=== PATIENT | female | born 1995 | race Caucasian/White ===

== ENCOUNTER 2019-07-05 10:04 | Emergency (ER) | payer OTHER ==
--- OUTSIDE RECORDS SUMMARY | 2019-07-05 10:06 | XMS REPORT | Summary of Care ---
:[address] [facility] - Health Address [address] [place] [address] Care Team Providers Name Role Phone Preston Matamoros Primary Care Provider Encounter Details Date Type Department Care Team Description 01/18/[address] [facility] Doctor Unassigned, No [address] [facility] [place] [address] [address] [place] [address] Allergies No Known Allergiesdocumented as of this encounter (statuses as of 01/18/2019) Medications Medication Sig Dispensed Refills Start Date End Date Status lurasidone (LATUDA) 40 Take 40 mg by 0 Active mg tablet mouth. traZODONE 50 mg tablet Take 50 mg by 0 Active mouth daily. lamoTRIgine (LAMICTAL) Take 150 mg by 0 Active 150 mg tablet mouth daily. esomeprazole (NEXIUM) 40 Take 40 mg by 0 Active mg capsule mouth daily with breakfast. norethindrone-ethinyl Take by mouth 0 Active estradiol 1-5 mg-mcg daily. tablet buPROPion XL 300 mg 24 Take 300 mg by 0 Active hr tablet mouth daily. dextroamphetamine-amphet Take 20 mg by 0 Active amine (ADDERALL) 20 mg mouth 2 (two) tablet times daily. DULoxetine 60 mg capsule Take 60 mg by 0 Active mouth 2 (two) times daily. documented as of this encounter (statuses as of 01/18/2019) Active Problems Not on filedocumented as of this encounter (statuses as of 01/18/2019) Social History Tobacco Use Types Packs/Day Years Used Date Never Smoker Smokeless Tobacco: Never Used Sex Assigned at Date Recorded Not on file Job Start Date Occupation Industry Not on file Not on file Not on file Travel History Travel Start Travel End No recent travel history available. documented as of this encounter Last Filed Vital Signs Not on filedocumented in this encounter Plan of Treatment Health Maintenance Due Date Last Done Comments MENINGOCOCCAL B VACCINES (1 of 2 - 2005 Risk Bexsero 2-dose series) VARICELLA VACCINES (1 of 2 - 13+ 2008 2-dose series) HPV VACCINES (1 - Female 3-dose 2010 series) CHLAMYDIA SCREENING 2011 DTaP,Tdap,and Td Vaccines (1 - 2014 Tdap) PAP SMEAR 2016 INFLUENZA VACCINE (Retired version) 02/04/2019 PNEUMOCOCCAL 0-64 YEARS COMBINED Aged Out No longer eligible based on SERIES patient's age to complete this topic documented as of this encounter Procedures Procedure Name Priority Date/Time Associated Diagnosis Comments ASSIGNMENT OF BENEFITS Routine 01/18/2019 2:40 PM CDT documented in this encounter Results Not on filedocumented in this encounter Insurance Payer Benefit Plan / Group Subscriber ID Effective Dates Phone Address Type [place] [id number] 2018-Present documented as of this encounter
--- OUTSIDE RECORDS SUMMARY | 2019-07-05 10:06 | XMS REPORT ---
:1995 Author Organization [facility] Address [address] [place] [address] Dr. Darby [address] [place] [id number] Care Team Providers Name Role Phone Unavailable Unavailable Unavailable Problems This patient has no known problems. Allergies, Adverse Reactions, Alerts This patient has no known allergies or adverse reactions. Medications This patient has no known medications.
--- OUTSIDE RECORDS SUMMARY | 2019-07-05 10:06 | XMS REPORT ---
:1995 Author Organization [employer] Care Team Providers Name Role Phone Judy Albert Provider Role Unavailable Allergies No Known Allergies Problems Problem Type Condition Code Onset Dates Condition Status Assessment Other specified bacterial agents as B96.89 Active the cause of diseases classified elsewhere Assessment Acute vaginitis N76.0 Active Problem History of abnormal cervical Pap Z87.898 Active smear Problem Seasonal allergic rhinitis due to J30.1 Active pollen Problem LGSIL on Pap smear of cervix R87.612 Active Problem Cervical dysplasia N87.9 Active Assessment LGSIL on Pap smear of cervix R87.612 Active Problem Asthma J45.909 Active Problem Bipolar disorder F31.9 Active Medications Medication Code Code Instructions Start End Status Dosage System Date Date Latuda [facility] 75421562753 40 MG Orally Active 1 tablet Once a day with food Xanax ND 56366250513 0.25 MG Orally Active 1 tablet Twice a day prn Cymbalta ND 93015041941 60 MG Orally Active 2 capsule Once a day Lamictal ND 81054361991 150 MG Orally Active 1 tablet once a day Trazodone HCl ND 04713153222 50 MG Orally Active 1 tablet Once a day at bedtime as needed Adderall ND 05105785694 20 MG Orally Active 1 tablet twice a day in the morning Wellbutrin XL ND 08497637534 300 MG Orally Active 1 tablet Once a day in the morning Flagyl ND 39058660621 500 MG Orally 15 November Active 1 tablet 2017 Nexium ND 70513251018 40 MG Orally Active 1 capsule Once a day Results No Known Results Summary Purpose eClinicalWorks Submission
--- OUTSIDE RECORDS SUMMARY | 2019-07-05 10:06 | XMS REPORT ---
:1995 Author Organization [employer] Care Team Providers Name Role Phone Judy Albert Provider Role Unavailable Allergies, Adverse Reactions, Alerts Substance Reaction Event Type N.K.D.A. Info Not Available Non Drug Allergy Problems Problem Type Condition Code Onset Dates Condition Status Problem Seasonal allergic rhinitis due to J30.1 Active pollen Problem Asthma J45.909 Active Problem History of abnormal cervical Pap Z87.898 Active smear Assessment History of abnormal cervical Pap Z87.898 Active smear Problem Bipolar disorder F31.9 Active Problem Cervical dysplasia N87.9 Active Medications Medication Code Code Instructions Start End Status Dosage System Date Date Trazodone HCl [facility] 46179548952 50 MG Orally Active 1 tablet Once a day at bedtime as needed Cymbalta [facility] 48728993061 60 MG Orally Active 2 capsule Once a day Latuda [facility] 97495896857 40 MG Orally Active 1 tablet Once a day with food Adderall ND 16094263509 20 MG Orally Active 1 tablet twice a day in the morning Nexium ND 74986181060 40 MG Orally Active 1 capsule Once a day Lamictal ND 45341790354 150 MG Orally Active 1 tablet once a day Wellbutrin XL ND 94760475352 300 MG Orally Active 1 tablet Once a day in the morning Xanax [facility] 13363753910 0.25 MG Orally Active 1 tablet Twice a day prn Results No Known Results Summary Purpose eClinicalWorks Submission
--- OUTSIDE RECORDS SUMMARY | 2019-07-05 10:07 | XMS REPORT | Summary of Care ---
:1995 Author Organization [facility] - Health Address [address] [place] [address] Care Team Providers Name Role Phone rPeston Matamoros Nathaniel Primary Care Provider Encounter Details Date Type Department Care Team Description 02/03/2019 Orders Only [facility] Doctor Unassigned, No 301 [facility] Name [place] [id number] [address] [place] [address] Allergies No Known Allergiesdocumented as of this encounter (statuses as of 02/03/2019) Medications Medication Sig Dispensed Refills Start Date End Date Status traZODONE 50 mg tablet Take 50 mg by 0 Active mouth daily. lamoTRIgine (LAMICTAL) Take 150 mg by 0 Active 150 mg tablet mouth daily. esomeprazole (NEXIUM) Take 40 mg by 0 Active 40 mg capsule mouth daily with breakfast. norethindrone-ethinyl Take by mouth 0 Active estradiol 1-5 mg-mcg daily. tablet dextroamphetamine-amph Take 20 mg by 0 Active etamine (ADDERALL) 20 mouth 2 (two) mg tablet times daily. metroNIDAZOLE (FLAGYL) Take 1 tablet by 14 tablet 3 01/18/2019 Active 500 mg mouth 2 (two) tabletIndications: BV times daily. (bacterial vaginosis) metroNIDAZOLE Insert 1 280 g 6 01/18/2019 Active (METROGEL VAGINAL) Applicator into 0.75 % vaginal vagina at bedtime. gelIndications: BV (bacterial vaginosis) documented as of this encounter (statuses as of 02/03/2019) Active Problems Problem Noted Date History of abnormal cervical Pap smear 01/18/2019 Overview: 02/08/2017 - LGSIL pap smear. 10/24/17 - LGSIL pap smear. Uses oral contraception 01/18/2019 BV (bacterial vaginosis) 01/18/2019 Overview: 01/18/19 - s/p Flagyl documented as of this encounter (statuses as of 02/03/2019) Social History Tobacco Use Types Packs/Day Years Used Date Never Smoker Smokeless Tobacco: Never Used Alcohol Use Drinks/Week oz/Week Comments Not Currently Sex Assigned at Date Recorded Not on file Job Start Date Occupation Industry Not on file Not on file Not on file Travel History Travel Start Travel End No recent travel history available. documented as of this encounter Last Filed Vital Signs Not on filedocumented in this encounter Plan of Treatment Date Type Specialty Care Team Description 01/21/2020 Office Visit Obstetrics & Gynecology Jenni Hope PA-C [address] [place] [phone] Health Maintenance Due Date Last Done Comments MENINGOCOCCAL B VACCINES (1 of 2 - 2005 Risk Bexsero 2-dose series) VARICELLA VACCINES (1 of 2 - 13+ 2008 2-dose series) HPV VACCINES (1 - Female 3-dose 2010 series) DTaP,Tdap,and Td Vaccines (1 - 2014 Tdap) INFLUENZA VACCINE (#1) 2019 CHLAMYDIA SCREENING 01/19/2020 01/18/2019 PAP SMEAR 01/18/2022 01/18/2019 PNEUMOCOCCAL 0-64 YEARS COMBINED Aged Out No longer eligible based on SERIES patient's age to complete this topic documented as of this encounter Procedures Procedure Name Priority Date/Time Associated Diagnosis Comments EXTERNAL PROVIDER Routine 02/03/2019 12:01 AM CDT RECORDS EXTERNAL PROVIDER Routine 02/03/2019 12:01 AM CDT RECORDS EXTERNAL PROVIDER Routine 02/03/2019 12:01 AM CDT RECORDS documented in this encounter Results Not on filedocumented in this encounter Insurance Payer Benefit Plan / Group Subscriber ID Effective Dates Phone Address Type [facility] [id number] 2018-Present documented as of this encounter
--- OUTSIDE RECORDS SUMMARY | 2019-07-05 10:07 | XMS REPORT | Summary of Care ---
:1995 Author Organization [facility] Address [address] [place] [address] Care Team Providers Name Role Phone Preston Matamoros Primary Care Provider Reason for Visit Reason Comments Well Woman Exam Other hx of abnormal paps Vaginal Discharge (Routine) Status Reason Specialty Diagnoses / Referred By Referred To Procedures Contact Contact Authorized Obstetrics & Diagnoses Encounter for gynecological examination (general) (routine) without abnormal findings Irregular menstruation, unspecified Preston Matamoros, Gynecology Procedures CONSULT PACKAGE CRIMPER Nathaniel Iqbal MD [address], Phone: [place] [phone] Phone: Encounter Details Date Type Department Care Team Description 01/18/2019 Office Visit [facility] Women[facility] Aurea, Pap smear for cervical cancer screening (Primary Dx); Healthcare- Radha Iqbal MD History of abnormal cervical Pap smear; [address] Screening examination for venereal disease; [address] [place], [place] Other specified conditions associated with female genital organs and menstrual cycle ; [place] [address] Uses oral contraception; [id number] Vaginal discharge; [phone] BV (bacterial vaginosis) (Fax) Allergies No Known Allergiesdocumented as of this encounter (statuses as of 01/18/2019) Medications Medication Sig Dispensed Refills Start Date End Date Status traZODONE 50 mg Take 50 mg by 0 Active tablet mouth daily. lamoTRIgine Take 150 mg by 0 Active (LAMICTAL) 150 mg mouth daily. tablet esomeprazole Take 40 mg by 0 Active (NEXIUM) 40 mg mouth daily with capsule breakfast. norethindrone-ethin Take by mouth 0 Active yl estradiol 1-5 daily. mg-mcg tablet dextroamphetamine-a Take 20 mg by 0 Active mphetamine mouth 2 (two) (ADDERALL) 20 mg times daily. tablet metroNIDAZOLE Take 1 tablet by 14 tablet 3 01/18/2019 Active (FLAGYL) 500 mg mouth 2 (two) tabletIndications: times daily. BV (bacterial vaginosis) metroNIDAZOLE Insert 1 280 g 6 01/18/2019 Active (METROGEL VAGINAL) Applicator into 0.75 % vaginal vagina at gelIndications: BV bedtime. (bacterial vaginosis) lurasidone (LATUDA) Take 40 mg by 0 Discontinued 40 mg tablet mouth. 9 buPROPion XL 300 mg Take 300 mg by 0 Discontinued 24 hr tablet mouth daily. 9 DULoxetine 60 mg Take 60 mg by 0 Discontinued capsule mouth 2 (two) 9 times daily. documented as of this encounter (statuses as of 01/18/2019) Active Problems Problem Noted Date History of abnormal cervical Pap smear 01/18/2019 Uses oral contraception 01/18/2019 BV (bacterial vaginosis) 01/18/2019 documented as of this encounter (statuses as [...] of this encounter Last Filed Vital Signs Vital Sign Reading Time Taken Comments Blood Pressure 145/105 01/18/2019 3:58 PM CDT Pulse 89 01/18/2019 3:58 PM CDT Temperature - - Respiratory Rate 18 01/18/2019 3:58 PM CDT Oxygen Saturation - - Inhaled Oxygen Concentration - - Weight 67.3 kg (148 lb 6.4 oz) 01/18/2019 3:58 PM CDT Height 149.9 cm (4' 11") 01/18/2019 3:58 PM CDT Body Mass Index 29.97 01/18/2019 3:58 PM CDT documented in this encounter Progress Notes Rasheed Villar MD - 01/18/2019 2:30 PM CDT Chief complaint: Chief Complaint Patient presents with Well Woman Exam Other hx of abnormal paps Vaginal Discharge HPI: The patient is a 23 year-old WF G0 LMP 12/11/18 who comes in for her annual well woman and pap smear. She reports having an abnormal pap smear in 2017 and another one in 2018. She was simply told [facility] in 1 year for a repeat pap smear. Those prior pap smear records are not available for review. She takes OCP for contraception, missed a week or so while waiting for a new prescription and is a little late for her menses. Urine HCG today is negative. She uses personal lubricants, typically oil based and has noticed that she has recurrent vaginal discharge with an odor. She has recently switched towater based lubricants but still has discharge. She denies any prior STDs. Histories OB History Para Term AB Living 0 0 0 0 0 0 SAB TAB Ectopic Multiple Live Births 0 0 0 0 0 Past Medical History: Diagnosis Date Asthma BV (bacterial vaginosis) 01/18/2019 Mental disorder Pap smear abnormality of cervix history of abnormal pap smear 2018 Family History Problem Relation Age of Onset High cholesterol Mother Depression Mother Hypertension Father Diabetes Maternal Grandfather Family Status Relation Name Status Mo Alive Fa Alive MGFa (Not Specified) History reviewed. No pertinent surgical history. Social History Socioeconomic History Marital status: Single Spouse name: Not on file Number of children: Not on file Years of education: Not on file Highest education level: Not on file Occupational History Not on file Social Needs Financial resource strain: Not on file Food insecurity: Worry: Not on file Inability: Not on file Transportation needs: Medical: Not on file Non-medical: Not on file Tobacco Use Smoking status: Never Smoker Smokeless tobacco: Never Used Substance and Sexual Activity Alcohol use: Not Currently Drug use: Never Sexual activity: Yes Partners: Male control/protection: Pill Lifestyle Physical activity: Days per week: Not on file Minutes per session: Not on file Stress: Not on file Relationships Social connections: Talks on phone: Not on file Gets together: Not on file Attends confucianism service: Not on file Active member of club or organization: Not on file Attends meetings of clubs or organizations: Not on file Relationship status: Not on file Intimate partner violence: Fear of current or ex partner: Not on file Emotionally abused: Not on file Physically abused: Not on file Forced sexual activity: Not on file Other Topics Concern Not on file Social History Narrative Not on file Social History Substance and Sexual Activity Sexual Activity Yes Partners: Male control/protection: Pill Labs No new labs Radiology No new radiology. Allergies Mikaela has No Known Allergies. Medications Mikaela has a current medication list which includes the following prescription( s): metronidazole, metronidazole, dextroamphetamine-amphetamine, esomeprazole, lamotrigine, norethindrone-ethinyl estradiol, and trazodone. Review of Systems Constitutional: Negative. Eyes: Negative. Respiratory: Negative. Breasts: Negative. Cardiovascular: Negative. Gastrointestinal: Negative. Genitourinary: Positive for vaginal discharge. Negative for genital sores. Musculoskeletal: Negative. Neurological: Negative. Psychiatric/Behavioral: Negative. Endocrine: Endocrine negative BP (!) 145/105 (BP Location: Right arm, Patient Position: Sitting, BP CUFF SIZE : Adult Medium) | Pulse 89 | Resp 18 | Ht 4' 11" (1.499 m) | Wt 148 lb 6.4 oz (67.3 kg) | LMP 12/08/2018 | BMI 29.97kg/m Pregravid BMI: Could not be calculated Physical Exam Vitals reviewed. Constitutional: She is oriented to person, place, and time. She appears well- developed and well-nourished. Cardiovascular: Regular rate and rhythm. Pulmonary/Chest: Normal inspiratory effort. Abdominal: Abdomen is soft. Neuro/Psychiatric: She has a normal mood and affect. She is oriented to person, place, and time. Breast: Normal left breast and normal right breast External genitalia: Normal external genitalia appropriate for age. Bladder: Normal bladder Vagina:Vaginal discharge (malodorous discharge) found. Cervix: Normal cervix. Uterus: Normal uterus Adnexa: Normal left adnexa and normal right adnexa Assessment/Plan Pap smear for cervical cancer screening (primary encounter diagnosis) History of abnormal cervical Pap smear Screening examination for venereal disease Other specified conditions associated with female genital organs and menstrual cycle Uses oral contraception Vaginal discharge BV (bacterial vaginosis) Comment: The patient's exam was notable for malodorous vaginal discharge clinically c/w BV. A pap smear and a vaginal swab were obtained. I sent a prescription for Flagyl pending the results as well asrefills for Metrogel that she can use twice weekly PRN. Plan: PAP Smear-Liquid Based; GC & CHLAMYDIA AMPLIFIED ASSAY; POCT TEST; GALV ONLY - VAGINAL PATHOGENS BY DNA PROBE metroNIDAZOLE (FLAGYL) 500 mg tablet, metroNIDAZOLE (METROGEL VAGINAL) 0.75 % vaginal gel Rasheed Villar MD 01/18/2019 4:41 PM documented in this encounter Plan of Treatment Date Type Specialty Care Team Description 01/21/2020 Office Visit Obstetrics & Gynecology Jenni Hope PA-C [address] [place] [phone] Name Type Priority Associated Diagnoses Order Schedule PAP Smear-Liquid Based LAB Routine Pap smear for cervical Ordered: 2018 cancer screening History of abnormal cervical Pap smear GC & CHLAMYDIA AMPLIFIED LAB Routine Other specified conditions Ordered: ASSAY associated with female genital organs and menstrual cycle Screening examination for venereal disease GALV ONLY - VAGINAL LAB Routine Vaginal discharge Ordered: 01/18/2019 PATHOGENS BY DNA PROBE Health Maintenance Due Date Last Done Comments MENINGOCOCCAL B VACCINES (1 of 2 - 2005 Risk Bexsero 2-dose series) VARICELLA VACCINES (1 of 2 - 13+ 2008 2-dose series) HPV VACCINES (1 - Female 3-dose 2010 series) CHLAMYDIA SCREENING 2011 DTaP,Tdap,and Td Vaccines (1 - 2014 Tdap) PAP SMEAR 2016 INFLUENZA VACCINE (#1) 2019 PNEUMOCOCCAL 0-64 YEARS COMBINED Aged Out No longer eligible based on SERIES patient's age to complete this topic documented as of this encounter Procedures Procedure Name Priority Date/Time Associated Diagnosis Comments POCT Routine 01/18/2019 4:12 Uses oral Results for this TEST PM CDT contraception procedure are in the results section. documented in this encounter Results POCT TEST (01/18/2019 4:12 PM CDT) POCT PREG Negative On board controls acceptable Yes with C Line POCT PREG LOT # POCT PREG TEST DATE Specimen Urine - URINE, CLEAN CATCH documented in this encounter Visit Diagnoses Diagnosis Pap smear for cervical cancer screening - Primary Screening for malignant neoplasm of the cervix History of abnormal cervical Pap smear Personal history of other genital system and obstetric disorders Screening examination for venereal disease Other specified conditions associated with female genital organs and menstrual cycle Uses oral contraception Vaginal discharge Leukorrhea, not specified as infective BV (bacterial vaginosis) Vaginitis and vulvovaginitis, unspecified documented in this encounter documented as of this encounter
--- OUTSIDE RECORDS SUMMARY | 2019-07-05 10:07 | XMS REPORT | Summary of Care ---
:1995 Author Organization [facility] [employer] [facility] Address [address] [place] [address] Care Team Providers Name Role Phone Preston Matamoros Primary Care Provider Reason for Visit Reason Comments Well Woman Exam Other hx of abnormal paps Vaginal Discharge (Routine) Status Reason Specialty Diagnoses / Referred By Referred To Procedures Contact Contact Authorized Obstetrics & Diagnoses Encounter for gynecological examination (general) (routine) without abnormal findings Irregular menstruation, unspecified Preston Matamoros, Gynecology Procedures CONSULT DIET CLERK Nathaniel Iqbal MD [address], Phone: [place] [phone] Phone: Encounter Details Date Type Department Care Team Description 01/18/2019 Office Visit [facility] Women's Aurea, Pap smear for cervical cancer screening (Primary Dx); Healthcare- Radha Iqbal MD History of abnormal cervical Pap smear; [address] Screening examination for venereal disease; [address] [place], [place] Other specified conditions associated with female genital organs and menstrual cycle ; [place] [address] Uses oral contraception; [id number] Vaginal discharge; [phone] BV (bacterial vaginosis) (Fax) Allergies No Known [...] one in 2018. She was simply told [facility] in 1 year for a repeat pap [...] file Gets together: Not on file Attends gnosticist service: Not on file Active member of [...] Visit Obstetrics & Gynecology Jenni Hope PA-C [address] [place] [phone] Name Type Priority Associated Diagnoses Order [...]
[2019-07-05 10:31] LABS: Arterial Blood Carboxyhemoglob 0.5 % (0-1.5); Blood Gas Oxyhemoglobin 98.5 % (94-97); Blood O2 Saturation 99.6 % (92-98.5)
[2019-07-05] MEDS ORDERED: NA CHLORIDE 0.9% 2,000 ML ONE (10:41)
[2019-07-05 10:43] LABS: Absolute Lymphocytes (CBC) 2.4 K/uL (0.7-4.9); Basophils % 0.5 % (0-1.3); Hematocrit 39.7 % (36.0-45.0); Lymphocytes % 22.2 % (15.3-44.8); MPV 9.2 fL (7.6-11.3); RBC Red Blood Cell Count 4.68 M/uL (3.86-4.86)
[2019-07-05 10:53] LABS: Protime INR 0.95
[2019-07-05 11:02] LABS: Barbiturates NEGATIVE (NEGATIVE); Benzodiazepines POSITIVE (NEGATIVE); Cocaine NEGATIVE (NEGATIVE); METHAMPHETAM NEGATIVE (NEGATIVE); Methadone NEGATIVE (NEGATIVE); Opiates NEGATIVE (NEGATIVE); Phencyclidine NEGATIVE (NEGATIVE); THC Cannibis POSITIVE (NEGATIVE)
[2019-07-05 11:06] LABS: Urine Blood TRACE (NEG); Urine Glucose NEGATIVE (NEG); Urine Protein NEGATIVE (NEG); Urine Specific Gravity 1.015 (1.005-1.030)
--- NOTE | 2019-07-05 11:07 | RAD REPORT ---
EXAM DESCRIPTION: CT - Head Brain Wo Cont - 07/05/2019 10:52 am CLINICAL HISTORY: Unresponsive COMPARISON: 2012 TECHNIQUE: Computed axial tomography of the head was obtained. IV contrast was not requested. All CT scans are performed using dose optimization technique as appropriate and may include automated exposure control or mA/KV adjustment according to patient size. FINDINGS: An intracranial bleed is not seen . The ventricles are normal in caliber. No extra-axial fluid collection is noted. The sulci, cisterns and ventricles appear smaller than on the prior exam. Fluid is present within the sinuses. IMPRESSION: The sulci, cisterns and ventricles appear smaller on the prior exam which may indicate d iffuse cerebral edema. Exam was discussed with Dr Camarillo in the Emergency Room 11 a.m. July 05, 2019
--- NOTE | 2019-07-05 11:16 | EKG ---
Test Date: 2019-07-05 Test Time: 10:14:46 Falsework Builder: NOELLE MEASUREMENT RESULTS: Intervals: Rate: 127 FL: 158 QRSD: 66 QT: 288 QTc: 418 [place]: P: 78 FL: 158 QRS: 82 T: 65 INTERPRETIVE STATEMENTS: Sinus tachycardia Otherwise normal ECG No previous ECG available for comparison Electronically Signed On 07-05-19 11:15:51 STAFF NURSE MIDWIFE by Darren Roman
--- NOTE | 2019-07-05 11:16 | RAD REPORT ---
EXAM DESCRIPTION: Aminata Single View07/05/2019 10:45 am CLINICAL HISTORY: Shortness of breath COMPARISON: none FINDINGS: Endotracheal tube has its tip 4.5 centimeters above the mami A nasogastric tube is present within the stomach The lungs appear clear of acute infiltrate The heart is normal size
[2019-07-05] MEDS ORDERED: D5 0.45 NS 1,000 ML IV ONE (11:19)
[2019-07-05 11:33] LABS: ALT/SGPT 23 U/L (12-78); AST/SGOT 18 U/L (15-37); Albumin 3.7 g/dL (3.4-5.0); Alkaline Phosphatase 115 U/L (45-117); BUN Blood Urea Nitrogen 9 mg/dL (7-18); Bicarbonate 29 mmol/L (21-32); Bilirubin Direct 0.1 mg/dL (0-0.2); Bilirubin Total 0.3 mg/dL (0.2-1.0); Glucose Level 103 mg/dL (74-106); Potassium 3.8 mmol/L (3.5-5.1); Protein, Total 7.9 g/dL (6.4-8.2); Sodium Level 141 mmol/L (136-145)
[2019-07-05] MEDS ORDERED: dexAMETHasone 10 MG/ML VIAL ONE (12:10)
[2019-07-05] MEDS ORDERED: MANNITOL 25% 50 ML IV ONE (12:11)
[2019-07-05] MEDS ORDERED: MANNITOL 25% IV ONE (12:30)
--- NOTE | 2019-07-05 12:39 | EDPHYS ---
Physician Documentation [facility] Name: Mikaela Vincent Age: 24 yrs Sex: Female : 1995 Arrival Date: 07/05/2019 Time: 10:05 Bed 4 Private MD: ED Physician Edgardo Camarillo HPI: 07/05 10:08 This 24 yrs old Female presents to ER via Unassigned with complaints of rn Possible Overdose. 10:08 The patient presents to the emergency department with a possible overdose. Context: rn Method: the patient has a confirmed or suspected ingestion, Time: the patient's OD/poisoning occurred at an unknown time, and was witnessed no one. Severity of symptoms: At their worst the symptoms were severe in the emergency department the symptoms are unchanged. It is unknown whether or not the patient has had similar symptoms in the past. Per EMS, likely ingestion, patient had contact with [employer] last night, then no one had spoken to her since last night, police forced entry today, found her unresponsive, EMS tried narcan without improvement, CO2 elevated, intubated with ketamine and rocuronium, no other information obtained. per EMS, was in a lot of emesis and emesis contained blue pills.. 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 - Coronavirus screen:: The patient has NOT traveled to [place], [place], or [place] in the past 14 days. The patient has NOT had contact with known/suspected case of Coronavirus?. - Social history:: Smoking status: unknown. - Ebola Screening: : No symptoms or risks identified at this time. - Unable to obtain history due to: altered mental status. ROS: 10:08 Unable to obtain ROS due to patient is on ventilator. rn Exam: 10:08 Constitutional: This is a well developed, well nourished patient, intubated, rn unresponsive Head/Face: Normocephalic, atraumatic. Eyes: Pupils 7mm, non-reactive ENT: Intubated Cardiovascular: Tachycardic, regular Respiratory: + coarse bilateral breath sounds, intial absent on left, tube withdrawn from 27cm to 23cm, with improve aeration. Abdomen/GI: soft, non-distended MS/ Extremity: Pulses equal, no cyanosis. Cap refill 4 sec Neuro: GCS 3, intubated 10:18 ECG was reviewed by the Attending Physician. rn Vital Signs: 10:26 BP 161 / 110; Pulse 123; Resp 14 A; Temp 96.5(C); Pulse Ox 100% on ETT vent; Weight ph 63.5 kg; 11:00 BP 154 / 112; Pulse 121; Resp 14; Temp 96.4(C); Pulse Ox 100% on ETT vent; ph 11:45 BP 153 / 109; Pulse 115; Resp 18; Temp 95.4; Pulse Ox 100% on 50% FiO2 ETT vent; ph 12:22 BP 140 / 97; Pulse 119; Resp 16; Temp 95.6(C); Pulse Ox 100% on 50% FiO2 ETT vent; ph 12:45 BP 152 / 94; Pulse 117; Resp 18; Temp 97.2(C); Pulse Ox 100% on 50% FiO2 ETT vent; ph 13:04 BP 153 / 102; Pulse 112; Resp 20; Temp 97.2(C); Pulse Ox 95% on 50% FiO2 ETT vent; ph 13:30 BP 146 / 89; Pulse 116; Resp 18; Temp 97.5; Pulse Ox 100% on 50% FiO2 ETT vent; ph 13:59 BP 138 / 90; Pulse 115; Resp 18; Temp 97.5; Pulse Ox 100% on 50% FiO2 ETT vent; ph 14:18 BP 132 / 87; Pulse 114; Resp 18; Temp 97.5; Pulse Ox 98% on 50% FiO2 ETT vent; ph 14:45 BP 147 / 97; Pulse 117; Resp 18; Temp 97.4(C); Pulse Ox 100% on 50% FiO2 ETT vent; ph 15:15 BP 138 / 87; Pulse 113; Resp 16; Temp 97.6(C); Pulse Ox 99% on 50% FiO2 ETT vent; ph Jak Coma Score: 10:30 Eye Response: none(1). Verbal Response: none(1). Motor Response: none(1). Modifying ph Factors: Intubated. Total: 3. MDM: 10:06 Patient medically screened. rn 11:51 ED course: Spoke with Dr. Longoria regarding admission of patient, states we need to turn out to [place] given cerebral edema. . 12:01 ED course: Consulted with Lucio Camacho, recommends transfer for higher level of care, rn mannitol, steroids. . 12:40 ED course: Pt improved, now moving all 4 extremities, localizing, and improved mental rn status. Mannitol canceled after consultation with Dr. Emery. . 07/05 10:07 Order name: Acetaminophen; Complete Time: 11:38 rn 07/05 10:07 Order name: Basic Metabolic Panel; Complete Time: : rn 07/05 10:07 Order name: CBC with Diff; Complete Time: 10:54 rn 07/05 10:07 Order name: ETOH Level; Complete Time: : rn 07/05 10:07 Order name: Hepatic Function; Complete Time: : rn 07/05 10:07 Order name: PT-INR; Complete Time: rn 07/05 10:07 Order name: Ptt, Activated; Complete Time: rn 07/05 10:07 Order name: Salicylate; Complete Time: : rn 07/05 10:07 Order name: Urine Drug Screen; Complete Time: rn 07/05 10:07 Order name: ABG; Complete Time: rn 07/05 10:07 Order name: XRAY Chest (1 view); Complete Time: : rn 07/05 10:07 Order name: CT Head Brain wo Cont; Complete Time: : rn 07/05 10:39 Order name: Urine Dipstick--Ancillary (enter results); Complete Time: : eb 07/05 10:39 Order name: Urine --Ancillary (enter results); Complete Time: : eb 07/05 10:07 Order name: Urine Test (obtain specimen); Complete Time: : rn 07/05 10:07 Order name: EKG; Complete Time: 10: rn 07/05 10:07 Order name: EKG - Nurse/Tech; Complete Time: 10: rn 07/05 10:07 Order name: IV Saline Lock; Complete Time: : rn 07/05 10:07 Order name: Labs collected and sent; Complete Time: : rn 07/05 10:07 Order name: Urine Dipstick-Ancillary (obtain specimen); Complete Time: : rn 07/05 10:07 Order name: NG Tube; Complete Time: rn 07/05 10:07 Order name: Gil; Complete Time: 10:36 rn EC:18 Rate is 127 beats/min. Rhythm is regular. QRS [place] is Normal. [place] interval is normal. rn QRS interval is normal. QT interval is normal. No Q waves. T waves are Normal. No ST changes noted. Clinical impression: Sinus tachycardia. Interpreted by me. Reviewed by me. Administered Medications: 10:45 Drug: NS 0.9% 1000 ml Route: IV; Rate: 1000 ml; Site: right antecubital; ph 13:30 Follow up: Response: No adverse reaction; IV Status: Completed infusion; IV Intake: ph 1000ml 11:20 Drug: NS 0.9% 1000 ml Route: IV; Rate: 1000 ml; Site: right antecubital; ph 13:30 Follow up: Response: No adverse reaction; IV Status: Completed infusion; IV Intake: ph 1000ml 11:35 Drug: Sodium Bicarbonate 1 amp Route: IVP; Site: right antecubital; ph 12:00 Follow up: Response: No adverse reaction ph 11:35 Drug: D5-1/2 NS 1000 ml Route: IV; Rate: 150 ml/hr; Site: right antecubital; ph 12:30 Follow up: Response: No adverse reaction; IV Status: Infusion continued upon transfer ph 12:11 Drug: Decadron - Dexamethasone 10 mg Route: IVP; Site: right antecubital; ph 12:30 Follow up: Response: No adverse reaction ph 12:40 Not Given (canceled order): Mannitol 25% 0.5 g/kg IV at per protocol once; Administer rn over 2-6 hours 12:47 Drug: Versed 2 mg Route: IVP; Site: right antecubital; ph 13:00 Follow up: Response: No adverse reaction ph 13:04 Drug: Dilaudid 1 mg Route: IVP; Site: right antecubital; ph 19:23 Follow up: Response: No adverse reaction; Pain is decreased; RASS: Deep sedation (-4) ph 13:04 Drug: Versed 1 mg Route: IVP; Site: right antecubital; ph 13:30 Follow up: Response: No adverse reaction; RASS: Deep sedation (-4) ph 13:59 Drug: Zosyn 3.375 grams Route: IVPB; Infused Over: 60 mins; Site: right antecubital; ph 14:30 Follow up: Response: No adverse reaction; IV Status: Completed infusion ph 15:08 Drug: Versed 2 mg Route: IVP; Site: right antecubital; ss 15:30 Follow up: Response: No adverse reaction; RASS: Moderate sedation (-3) ph Disposition: 07/05/19 12:43 Transfer ordered to [facility]. Diagnosis are Cerebral edema, Toxic ingestion/overdose, Acidosis, Acute respiratory failure with hypercapnia. - Reason for transfer: Higher level of care. - Accepting physician is Dr. Robles. - Condition is Fair. - Problem is new. - Symptoms have improved. Critical care time excluding procedures: 12:42 Critical care time: Bedside Care: 25 minutes, Consultation: 10 minutes, Family rn Intervention: 5 minutes. Total time: 40 minutes Signatures: Dispatcher [employer] EDEdgardo Pelaez MD MD rn Smirch, Shelby, RN RN ss Hall, Patricia, RN RN ph Botello, Elizabeth eb Corrections: (The following items were deleted from the chart) 13:58 12:43 07/05/2019 12:43 Transfer ordered to [facility]. eb Diagnosis is Cerebral edema; Toxic ingestion/overdose; Acidosis; Acute respiratory failure with hypercapnia. Reason for transfer: Higher level of care. Accepting physician is . Condition is Fair. Problem is new. Symptoms have improved. rn 15:38 13:58 07/05/2019 12:43 Transfer ordered to [facility]. ph Diagnosis is Cerebral edema; Toxic ingestion/overdose; Acidosis; Acute respiratory failure with hypercapnia. Reason for transfer: Higher level of care. Accepting physician is Dr. Robles. Condition is Fair. Problem is new. Symptoms have improved. eb
--- NOTE | 2019-07-05 12:39 | ER ---
Nurse's Notes [facility] Name: Mikaela Vincent Age: 24 yrs Sex: Female : 1995 Arrival Date: 07/05/2019 Time: 10:05 Bed 4 Private MD: Diagnosis: Cerebral edema;Toxic ingestion/overdose;Acidosis;Acute respiratory failure with hypercapnia Presentation: 07/05 10:20 Presenting complaint: EMS states: Pt last seen last night at unknown time, it is ph believed that mental health deputy evaluated pt last night at some point and pt was not believed to be at risk for harming herself, family was unable to get in contact w/ pt this morning, forced entry into pt's apartment, pt found unresponsive by PD, minimally responsive to painful stimuli for EMS, vomitus noted to face w/ blue pill fragments, believe pt aspirated, pupils sluggish but responsive, Narcan administered x 1, 150 Ketamine and Rocuronium administered for intubation, 7.5 tube placed, pt hypertensive and tachycardiac upon arrival. 10:31 Transition of care: patient was not received from another setting of care. Onset of ph symptoms was July 05, 2019. Risk Assessment: Do you want to hurt yourself or someone else? Unable to obtain. Initial Sepsis Screen: Does the patient meet any 2 criteria? No. Patient's initial sepsis screen is negative. Does the patient have a suspected source of infection? No. Patient's initial sepsis screen is negative. Care prior to arrival: Oral intubation. 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 - Coronavirus screen:: The patient has NOT traveled to [place], [place], or [place] in the past 14 days. The patient has NOT had contact with known/suspected case of Coronavirus?. - Social history:: Smoking status: unknown. - Ebola Screening: : No symptoms or risks identified at this time. - Unable to obtain history due to: altered mental status. Screenin:32 Abuse screen: Denies threats or abuse. Denies injuries from another. Nutritional ph screening: No deficits noted. Tuberculosis screening: No symptoms or risk factors identified. Fall Risk None identified. Assessment: 10:30 General: Behavior is unresponsive. pt intubated. Pain: Unable to use pain scale. ph Patient is unresponsive. Neuro: Level of Consciousness is unresponsive, Oriented to none Pupils are sluggish. Cardiovascular: Capillary refill < 3 seconds in bilateral fingers Rhythm is sinus tachycardia. Respiratory: Airway is patent via oral intubation Trachea midline Respiratory pattern is regular, Breath sounds are coarse bilaterally. GI: Abdomen is round non-distended, vomitus noted to face, hair and in nose. : Vaginal discharge is white, Derm: Skin is intact. 10:45 Reassessment: Pt taken to CT accompanied by nurse and RT. ph 11:45 Reassessment: Patient appears in no apparent distress at this time. Patient and/or ph family updated on plan of care and expected duration. Pain level reassessed. Family at bedside, mother reports that pt has been having suicidal thoughts for 2 days, sates, " Night before last she said that she had a plan to hang herself. [place] [employer] came out last night at around midnight and then left, she texted her father and I at about 4 this morning and told us that she loved us." Also reports that pt has hx of major depressive disorder and bi-polar and that pt had been unable to sleep recently, also stopped antidepressants a few months ago and had appointment scheduled w/ psychiatrist today to adjust medications. 12:03 Reassessment: ERP at bedside to speak w/ family. ph 12:40 Reassessment: Patient appears in no apparent distress at this time. Patient and/or ph family updated on plan of care and expected duration. Pain level reassessed. ERP at bedside, pt noted to be moving both hands and arms, restraints placed, VSS, verbal order fir Versed received, see MAR. 12:45 Reassessment: Patient appears in no apparent distress at this time. ph 13:00 Reassessment: Patient appears in no apparent distress at this time. Patient and/or ph family updated on plan of care and expected duration. Pain level reassessed. Pt still noted be agitated,moving head and attempting to sit up in bed, ERP notified, see MAR. 14:14 Reassessment: Attempted to call report, receiving nurse unavailable, transfer center ph stated that they will call back. 14:25 Reassessment: Patient appears in no apparent distress at this time. Report called to [facility], awaiting EMS for transport. 15:30 Reassessment: Patient appears in no apparent distress at this time. Patient and/or ph family updated on plan of care and expected duration. Pain level reassessed. [facility] at bedside, reports given to Marvin WALSH. Overdose: 14:10 Patient took unknown medication, unknown amount. ph Vital Signs: 10:26 BP 161 / 110; Pulse 123; Resp 14 A; Temp 96.5(C); Pulse Ox 100% on ETT vent; Weight ph 63.5 kg; 11:00 BP 154 / 112; Pulse 121; Resp 14; Temp 96.4(C); Pulse Ox 100% on ETT vent; ph 11:45 BP 153 / 109; Pulse 115; Resp 18; Temp 95.4; Pulse Ox 100% on 50% FiO2 ETT vent; ph 12:22 BP 140 / 97; Pulse 119; Resp 16; Temp 95.6(C); Pulse Ox 100% on 50% FiO2 ETT vent; ph 12:45 BP 152 / 94; Pulse 117; Resp 18; Temp 97.2(C); Pulse Ox 100% on 50% FiO2 ETT vent; ph 13:04 BP 153 / 102; Pulse 112; Resp 20; Temp 97.2(C); Pulse Ox 95% on 50% FiO2 ETT vent; ph 13:30 BP 146 / 89; Pulse 116; Resp 18; Temp 97.5; Pulse Ox 100% on 50% FiO2 ETT vent; ph 13:59 BP 138 / 90; Pulse 115; Resp 18; Temp 97.5; Pulse Ox 100% on 50% FiO2 ETT vent; ph 14:18 BP 132 / 87; Pulse 114; Resp 18; Temp 97.5; Pulse Ox 98% on 50% FiO2 ETT vent; ph 14:45 BP 147 / 97; Pulse 117; Resp 18; Temp 97.4(C); Pulse Ox 100% on 50% FiO2 ETT vent; ph 15:15 BP 138 / 87; Pulse 113; Resp 16; Temp 97.6(C); Pulse Ox 99% on 50% FiO2 ETT vent; ph Independence Coma Score: 10:30 Eye Response: none(1). Verbal Response: none(1). Motor Response: none(1). Modifying ph Factors: Intubated. Total: 3. ED Course: 10:05 Patient arrived in ED. ss 10:06 Edgardo Camarillo MD is Attending Physician. rn 10:20 Karis Foley RN is Primary Nurse. ph 10:26 Initial lab(s) drawn, by me, sent to lab. Inserted saline lock: 22 gauge in right dh3 antecubital area, using aseptic technique. Blood collected. 10:29 Arm band placed on Patient placed in an exam room, on a stretcher, on oxygen, on ph butter melter, on pulse oximetry. 10:29 Gil cath inserted, using sterile technique, 16 Fr., by me, balloon inflated, urine ph specimen collected. returned clear yellow urine. Patient tolerated well. Criticore Gil inserted NGT: inserted 14 Fr. via left nare. verified placement of air over stomach, verified return of gastric contents, to intermittent suction. Returned gastric contents. pill fragments noted. 10:32 Triage completed. ph 10:35 Patient has correct armband on for positive identification. Placed in gown. Bed in low ph position. Call light in reach. Side rails up X2. communications agent on. Pulse ox on. NIBP on. Warm blanket given. 10:46 XRAY Chest (1 view) In Process Unspecified. EDMS 10:48 EKG done, by sprinkler repair technician. reviewed by Edgardo Camarillo MD. at1 10:52 CT Head Brain wo Cont In Process Unspecified. EDMS 11:49 Noise minimized. Lights dimmed. Head of bed elevated. One-on-one care X 180 minutes. ph 11:50 No provider procedures requiring assistance completed. Maintain EMS IV. Dressing ph intact. Good blood return noted. Site clean \\T\\ dry. Gauge \\T\\ site: 18 LAC. Thermoregulation: Am[place]o blanket applied. 12:05 transfer initiated with Brian from the [facility]. eb 12:21 connected the dairy processing supervisor semiconductor equipment technician Dr. Emery from [facility] with Dr. Camarillo for eb patient transfer consultation. 12:[address] Emery again with Dr. Camarillo for patient transfer consultation. eb 13:26 connected another dairy processing supervisor Dr. Torres from [facility] with Dr. Camarillo for eb patient transfer consultation. 13:42 administrative approval given to Sally Hagan by Brian Friend/ patient has been eb accepted to [place] [id number] Bed 7408/ Dr. Aziza Robles has accepted the patient in transfer/ report to be called to [phone]. 14:18 Patient transferred, IV remains in place. ph Restraints: 12:45 Non-Violent Restraint: Order obtained. Initiated on July 05, 2019 at 12:45 Restraint ph Education provided to family/significant other/legally authorized sales and merchandising representative. Actions/Behavior observed: Confused/disoriented, has difficulty remembering/follow instructions, has impaired decision making, has decreased level of consciousness, unable to follow instructions, repeated attempts to remove artifical airway/mechanical resp support, Clinical justification for use: airway protection, line protection. Administered Medications: 10:45 Drug: NS 0.9% 1000 ml Route: IV; Rate: 1000 ml; Site: right antecubital; ph 13:30 Follow up: Response: No adverse reaction; IV Status: Completed infusion; IV Intake: ph 1000ml 11:20 Drug: NS 0.9% 1000 ml Route: IV; Rate: 1000 ml; Site: right antecubital; ph 13:30 Follow up: Response: No adverse reaction; IV Status: Completed infusion; IV Intake: ph 1000ml 11:35 Drug: Sodium Bicarbonate 1 amp Route: IVP; Site: right antecubital; ph 12:00 Follow up: Response: No adverse reaction ph 11:35 Drug: D5-1/2 NS 1000 ml Route: IV; Rate: 150 ml/hr; Site: right antecubital; ph 12:30 Follow up: Response: No adverse reaction; IV Status: Infusion continued upon transfer ph 12:11 Drug: Decadron - Dexamethasone 10 mg Route: IVP; Site: right antecubital; ph 12:30 Follow up: Response: No adverse reaction ph 12:40 Not Given (canceled order): Mannitol 25% 0.5 g/kg IV at per protocol once; Administer rn over 2-6 hours 12:47 Drug: Versed 2 mg Route: IVP; Site: right antecubital; ph 13:00 Follow up: Response: No adverse reaction ph 13:04 Drug: Dilaudid 1 mg Route: IVP; Site: right antecubital; ph 19:23 Follow up: Response: No adverse reaction; Pain is decreased; RASS: Deep sedation (-4) ph 13:04 Drug: Versed 1 mg Route: IVP; Site: right antecubital; ph 13:30 Follow up: Response: No adverse reaction; RASS: Deep sedation (-4) ph 13:59 Drug: Zosyn 3.375 grams Route: IVPB; Infused Over: 60 mins; Site: right antecubital; ph 14:30 Follow up: Response: No adverse reaction; IV Status: Completed infusion ph 15:08 Drug: Versed 2 mg Route: IVP; Site: right antecubital; ss 15:30 Follow up: Response: No adverse reaction; RASS: Moderate sedation (-3) ph Intake: 13:30 IV: 1000ml; Total: 1000ml. ph 13:30 IV: 1000ml; Total: 2000ml. ph Outcome: 12:43 ER care complete, transfer ordered by . rn 15:38 Patient left the ED. ph 15:38 Transferred by ground EMS [place]. to [facility], Transfer form ph completed. X-rays sent w/ patient. 15:38 critical Signatures: Dispatcher [employer] EDMS Edgardo Camarillo MD MD rn Smirch, Shelby, RN RN ss Moira Nicholas, wick tender EKG Tat1 Karis Foley RN RN [facility] lyons [facility] Capri Garivn Corrections: (The following items were deleted from the chart) 10:32 10:20 Presenting complaint: EMS states: Pt last seen last night at unknown time, it is ph believed that mental health deputy evaluated pt last night at some point and pt was not believed to be at risk for harming herself, family was unable to get in contact w/ pt this morning, forced entry into pt's apartment, pt found unresponsive by PD, minimally responsive to painful stimuli for EMS, vomitus noted to face w/ blue pill fragments, believe pt aspirated, pupils sluggish but responsive, Narcan administered x 1, ph
[2019-07-05] MEDS ORDERED: MIDAZOLAM HCL 2 MG/2 ML INJ ONE ×3 (12:45→15:08)
[2019-07-05] MEDS ORDERED: HYDROMORPHONE HCL 1 MG/ML INJ ONE (13:04)
[2019-07-05] MEDS ORDERED: PIPER/TAZO/NS 3.375gm 3.375 GM/100 ML BAG ONE (14:04)
[2019-07-05 19:28] VITALS: TEMP 97.5
[2019-07-05 19:29] VITALS: BP 132/87; O2SAT 98
== END 2019-07-05 15:38 | disposition short-term general hospital (02) ==
LOC: ER 10:04
DX: G93.6 Cerebral edema (principal); E87.2 Acidosis; J96.02 Acute respiratory failure with hypercapnia; F32.9 Major depressive disorder, single episode, unspecified
CPT/HCPCS: 96365; 96361; 93005; 85025; 80048; 36415; 80320; 80329 ×2; 81025; 85610; 80076; 80307 ×8; 85730; 81003; 70450; 71045; 94002; 82805; 96375; 99291; 99292; J2150 ×2; J2250 ×3; J2543; J1100; J1170; J7799; J7030

== ENCOUNTER 2020-03-06 06:56 | Emergency (ER) | payer OTHER ==
--- OUTSIDE RECORDS SUMMARY | 2020-03-06 06:59 | XMS REPORT | Clinical Summary ---
:1995 Author Organization [facility] Address [address] [place] [address] Care Team Providers Name Role Phone Unavailable Primary Care Provider Unavailable Allergies No Known Allergies Medications Medication Sig Dispensed Refills Start Date End Date Status norgestimate-ethiny Take 1 tablet 0 Active l estradiol by mouth (TRINESSA, 28,) daily. 0.18/0.215/0.25 mg-35 mcg (28) per tablet lamoTRIgine Take 1 tablet 0 07/09/2019 07/08/2020 Ac tive (LAMICTAL) 25 MG (25 mg total) tablet by mouth nightly. lamoTRIgine Take 150 mg by 0 07/09/2019 Di scontinued (LAMICTAL) 150 MG mouth daily. tablet traZODone (DESYREL) Take 50 mg by 0 2019 Discontinued 50 MG tablet mouth nightly. dextroamphetamine-a Take 20 mg by 0 2019 Discontinued mphetamine mouth. (ADDERALL) 20 mg Tab tablet esomeprazole Take 40 mg by 0 07/09/2019 Di scontinued (NEXIUM) 40 MG mouth daily. capsule ALPRAZolam (XANAX) Take 0.25 mg 0 07/09/19 20 Discontinued 0.25 MG tablet by mouth as needed for Anxiety (pt takes this once a week). traZODone (DESYREL) Take 1 tablet 30 tablet 0 07/09/201908/07 50 MG tablet (50 mg total) by mouth nightly for 30 days. Active Problems Problem Noted Date Bipolar 1 disorder 07/09/2019 Suicide attempt 07/09/2019 Acute metabolic encephalopathy 07/06/2019 Acute respiratory failure with hypercapnia 07/05/2019 Encounters Date Type Specialty Care Team Description 07/06/2019 Travel 07/05/2019 - Hospital Encounter General Internal Aziza Robles Acu te hypoxemic respiratory failure (HCC); 07/10/2019 Medicine Acute metabolic encephalopathy; Bobby, [place] Exacerbation o f intermittent asthma, unspecified asthma severity; MD Kami Bipolar 1 disorder, depressed (HCC); Vignesh Marmolejo, Acute respir atory failure with hypercapnia (HCC); Suicide attempt (HCC) 07/05/2019 Orders Only General Internal Medicine 07/05/2019 Travel after 03/06/2019 Immunizations Name Dates Previously Given Next Due Influenza Four-QIV PF 3YR+ 07/08/2019 (Deferred: ) Pneumococcal Conjugate (Prevnar) 13-Valent 07/08/2019 (Defer red: ) Social History Tobacco Use Types Packs/Day Years Used Date Never Smoker Smokeless Tobacco: Never Used Alcohol Use Drinks/Week oz/Week Comments Yes Sex Assigned at Date Recorded Not on file Job Start Date Occupation Industry Not on file Not on file Not on file Travel History Travel Start Travel End No recent travel history available. Last Filed Vital Signs Vital Sign Reading Time Taken Blood Pressure 116/72 07/10/2019 7:57 AM RECOVERER Pulse 112 07/10/2019 8:31 AM RECOVERER Temperature 35.8 C (96.5 F) 07/10/2019 7:57 AM RECOVERER Respiratory Rate 20 07/10/2019 8:31 AM RECOVERER Oxygen Saturation 99% 07/10/2019 8:31 AM RECOVERER Inhaled Oxygen Concentration 21% 07/10/2019 8:31 AM RECOVERER Weight 89 kg (196 lb 3.4 oz) 07/05/2019 8:54 P M RECOVERER Height 149.9 cm (4' 11") 07/05/2019 8:54 PM RECOVERER Body Mass Index 39.63 07/05/2019 8:54 PM RECOVERER Plan of Treatment Health Maintenance Due Date Last Done Comments PNEUMOCOCCAL VACCINE 2-64 YEARS AT RISK (1 of 1 - 2001 PPSV23) LIPID PANEL 2015 CERVICAL CANCER SCREENING PAP ONLY (Age 21-65) 2016 INFLUENZA VACCINE (#1) 2020 Procedures Procedure Name Priority Date/Time Associated Comments Diagnosis RHYTHM STRIP - SCAN 07/11/2019 2:20 PM RECOVERER ECG 12-LEAD Routine 07/10/2019 7:22 Results for this AM RECOVERER procedure are i n the results section. CBC W/PLT COUNT & Routine 07/10/2019 6:17 Result s for this AUTO DIFFERENTIAL AM RECOVERER procedure are in the results section. BASIC METABOLIC PANEL STAT 07/10/2019 6:17 Re sults for this (7) AM RECOVERER procedure are i n the results section. MAGNESIUM STAT 07/10/2019 6:17 Results for this AM RECOVERER procedure are i n the results section. CBC W/PLT COUNT & Routine 07/10/2019 6:17 Result s for this AUTO DIFFERENTIAL AM RECOVERER procedure are in the results section. ECG 12-LEAD Routine 07/09/2019 7:34 Results for this AM RECOVERER procedure are i n the results section. CBC W/PLT COUNT & Routine 07/09/2019 5:52 Result s for this AUTO DIFFERENTIAL AM RECOVERER procedure are in the results section. BASIC METABOLIC PANEL STAT 07/09/2019 5:52 Re sults for this (7) AM RECOVERER procedure are i n the results section. MAGNESIUM STAT 07/09/2019 5:52 Results for this AM RECOVERER procedure are i n the results section. CBC W/PLT COUNT & Routine 07/09/2019 5:52 Result s for this AUTO DIFFERENTIAL AM RECOVERER procedure are in the results section. ECG 12-LEAD Routine 07/08/2019 4:52 PM RECOVERER Procedure Note - Interface, External Ris In - 07/08/2019 5:02 PM RECOVERER Ventricular Rate 112 BPM Atrial Rate 112 BPM P-R Interval 120 ms QRS Duration 62 ms Q-T Interval 304 ms QTC Calculation(Bazett) 414 ms P [place] 63 degrees R [place] 62 degrees T [place] 49 degrees Sinus tachycardia Otherwise normal ECG When compared with ECG of 17:29, No significant change was fo und ECG 12-LEAD Routine 07/08/2019 4:52 PM RECOVERER Resu lts for this procedure are i n the results section . POCT-GLUCOSE METER Routine 07/08/2019 7:10 AM RECOVERER Results for this procedure are i n the results section . CBC W/PLT COUNT & AUTO Routine 07/08/2019 4:35 AM RECOVERER Results for this DIFFERENTIAL procedure are i n the results section . BASIC METABOLIC PANEL (7) STAT 07/08/2019 4:35 AM RECOVERER Results for this procedure are i n the results section . MAGNESIUM STAT 07/08/2019 4:35 AM RECOVERER Resu lts for this procedure are i n the results section . CBC W/PLT COUNT & AUTO Routine 07/08/2019 4:35 AM RECOVERER Results for this DIFFERENTIAL procedure are i n the results section . POCT-GLUCOSE METER Routine 07/07/2019 9:28 PM RECOVERER Results for this procedure are i n the results section . ECG 12-LEAD Routine 07/07/2019 5:29 PM RECOVERER Resu lts for this procedure are i n the results section . POCT-GLUCOSE METER Routine 07/07/2019 12:33 PM RECOVERER Results for this procedure are i n the results section . POCT-GLUCOSE METER Routine 07/07/2019 6:01 AM RECOVERER Results for this procedure are i n the results section . CBC W/PLT COUNT & AUTO Routine 07/07/2019 3:07 AM RECOVERER Results for this DIFFERENTIAL procedure are i n the results section . BASIC METABOLIC PANEL (7) STAT 07/07/2019 3:07 AM RECOVERER Results for this procedure are i n the results section . MAGNESIUM STAT 07/07/2019 3:07 AM RECOVERER Resu lts for this procedure are i n the results section . CBC W/PLT COUNT & AUTO Routine 07/07/2019 3:07 AM RECOVERER Results for this DIFFERENTIAL procedure are i n the results section . POCT-GLUCOSE METER Routine 07/07/2019 12:16 AM RECOVERER Results for this procedure are i n the results section . POCT-GLUCOSE METER Routine 07/06/2019 7:11 PM RECOVERER Results for this procedure are i n the results section . POCT-GLUCOSE METER Routine 07/06/2019 11:50 AM RECOVERER Results for this procedure are i n the results section . ECG 12-LEAD Routine 07/06/2019 9:48 AM RECOVERER Resu lts for this procedure are i n the results section . ECG 12-LEAD Routine 07/06/2019 8:21 AM RECOVERER Resu lts for this procedure are i n the results section . XR CHEST 1 VIEW Routine 07/06/2019 5:42 AM RECOVERER R esults for this PORTABLE/BEDSIDE procedure a re in the results section . POCT-GLUCOSE METER Routine 07/06/2019 5:11 AM RECOVERER Results for this procedure are i n the results section . CBC W/PLT COUNT & AUTO Routine 07/06/2019 4:41 AM RECOVERER Results for this DIFFERENTIAL procedure are i n the results section . BLOOD GAS, VENOUS Routine 07/06/2019 4:41 AM RECOVERER Results for this procedure are i n the results section . BASIC METABOLIC PANEL (7) STAT 07/06/2019 4:41 AM RECOVERER Results for this procedure are i n the results section . MAGNESIUM STAT 07/06/2019 4:41 AM RECOVERER Resu lts for this procedure are i n the results section . CBC W/PLT COUNT & AUTO Routine 07/06/2019 4:41 AM RECOVERER Results for this DIFFERENTIAL procedure are i n the results section . ECG 12-LEAD Routine 07/06/2019 3:40 AM RECOVERER Resu lts for this procedure are i n the results section . ECG 12-LEAD Routine 07/06/2019 1:44 AM RECOVERER Resu lts for this procedure are i n the results section . MAGNESIUM STAT Add-on 07/05/2019 11:28 PM RECOVERER Resu lts for this procedure are i n the results section . BLOOD GAS, VENOUS STAT 07/05/2019 11:28 PM RECOVERER Results for this procedure are i n the results section . PHOSPHORUS STAT 07/05/2019 11:28 PM RECOVERER Resu lts for this procedure are i n the results section . BASIC METABOLIC PANEL (7) STAT 07/05/2019 11:28 PM RECOVERER Results for this procedure are i n the results section . POCT-GLUCOSE METER Routine 07/05/2019 11:26 PM RECOVERER Results for this procedure are i n the results section . ECG 12-LEAD Routine 07/05/2019 10:57 PM RECOVERER Resu lts for this procedure are i n the results section . URINALYSIS W/ REFLEX URINE STAT 07/05/2019 8:35 PM RECOVERER Results for this CULTURE procedure are i n the results section . URINE CULTURE STAT 07/05/2019 8:35 PM RECOVERER Res ults for this procedure are i n the results section . CT BRAIN WITHOUT IV STAT 07/05/2019 8:10 PM RECOVERER Results for this CONTRAST procedure are i n the results section . MAGNESIUM STAT Add-on 07/05/2019 7:49 PM RECOVERER Resu lts for this procedure are i n the results section . SALICYLATE LEVEL STAT 07/05/2019 7:49 PM RECOVERER Results for this procedure are i n the results section . CREATINE KINASE (CK) STAT 07/05/2019 7:49 PM RECOVERER Results for this procedure are i n the results section . SPUTUM CULTURE + GRAM Routine 07/05/2019 7:49 PM RECOVERER Results for this STAIN procedure are i n the results section . POCT-GLUCOSE METER Routine 07/05/2019 6:57 PM RECOVERER Results for this procedure are i n the results section . BLOOD GAS, ARTERIAL STAT 07/05/2019 6:44 PM RECOVERER Results for this procedure are i n the results section . BLOOD CULTURE Routine 07/05/2019 6:44 PM RECOVERER Res ults for this procedure are i n the results section . (CELLAVISION MANUAL DIFF) Routine 07/05/2019 6:26 PM RECOVERER Results for this procedure are i n the results section . CBC W/PLT COUNT & AUTO Routine 07/05/2019 6:26 PM RECOVERER Results for this DIFFERENTIAL procedure are i n the results section . SCREEN, URINE Routine 07/05/2019 6:26 PM RECOVERER Results for this procedure are i n the results section . DRUG SCREEN, URINE, Routine 07/05/2019 6:26 PM RECOVERER COMPREHENSIVE CBC W/PLT COUNT & AUTO Routine 07/05/2019 6:26 PM RECOVERER Results for this DIFFERENTIAL procedure are i n the results section . CORTISOL Routine 07/05/2019 6:25 PM RECOVERER Resu lts for this procedure are i n the results section . TSH/FREE T4 IF INDICATED Routine 07/05/2019 6:25 PM RECOVERER Results for this procedure are i n the results section . AMYLASE Routine 07/05/2019 6:25 PM RECOVERER Resu lts for this procedure are i n the results section . LIPASE Routine 07/05/2019 6:25 PM RECOVERER Resu lts for this procedure are i n the results section . MAGNESIUM STAT 07/05/2019 6:25 PM RECOVERER Resu lts for this procedure are i n the results section . ETHANOL STAT 07/05/2019 6:25 PM RECOVERER Resu lts for this procedure are i n the results section . ACETAMINOPHEN LEVEL Routine 07/05/2019 6:25 PM RECOVERER Results for this procedure are i n the results section . TOXICOLOGY SCREEN, SERUM Routine 07/05/2019 6:25 PM RECOVERER Results for this procedure are i n the results section . COMPREHENSIVE METABOLIC Routine 07/05/2019 6:25 PM RECOVERER Results for this PANEL procedure are i n the results section . FIBRINOGEN Routine 07/05/2019 6:25 PM RECOVERER Resu lts for this procedure are i n the results section . APTT Routine 07/05/2019 6:25 PM RECOVERER Resu lts for this procedure are i n the results section . PROTHROMBIN TIME/INR Routine 07/05/2019 6:25 PM RECOVERER Results for this procedure are i n the results section . BLOOD CULTURE Routine 07/05/2019 6:25 PM RECOVERER Res ults for this procedure are i n the results section . XR CHEST 1 VIEW STAT 07/05/2019 5:53 PM RECOVERER R esults for this PORTABLE/BEDSIDE procedure a re in the results section . after 03/06/2019 Results RHYTHM STRIP - SCAN (07/11/2019 2:20 PM RECOVERER) Narrative Performed At This result has an attachment that is no t available. ECG 12 lead (07/10/2019 7:22 AM RECOVERER)Only the most recent of9 resultswithin the time period is included. Specimen Narrative Performed At Ventricular Rate 92 BPM [employer] Atrial Rate 92 BPM P-R Interval 134 ms QRS Duration 62 ms Q-T Interval 334 ms QTC Calculation(Bazett) 413 ms P [place] 71 degrees R [place] 60 degrees T [place] 57 degrees Normal sinus rhythm Normal ECG When compared with ECG of 09-JUL-2019 07 :34, No significant change was found Confirmed by MD MATILDA, CARRI ([id number]) on 07/10/2019 1 :45:23 PM Procedure Note Interface, External Ris In - 07/10/2019 1:45 PM RECOVERER Ventricular Rate 92 BPM Atrial Rate 92 BPM P-R Interval 134 ms QRS Duration 62 ms Q-T Interval 334 ms QTC Calculation(Bazett) 413 ms P [place] 71 degrees R [place] 60 degrees T [place] 57 degrees Normal sinus rhythm Normal ECG When compared with ECG of 09-JUL-2019 07 :34, No significant change was found Confirmed by MD GREY YOCHAI ([id number]) on 07/10/2019 1:45:23 PM Performing Organization Address City/State/Zipcode Phone Number [employer] CBC with platelet count + automated diff (07/10/2019 6:17 AM RECOVERER)Only the most recent of6 resultswithin the time period is included. WBC 8.7 3.5 - 10.5 K/L [facility] RBC 4.38 3.93 - 5.22 M/L [facility] Hemoglobin 12.4 11.2 - 15.7 GM/DL [facility] Hematocrit 36.7 34.1 - 44.9 % [facility] MCV 83.8 79.4 - 94.8 fL [facility] MCH 28.3 25.6 - 32.2 pg [facility] MCHC 33.8 32.2 - 35.5 GM/DL [facility] RDW 13.5 11.7 - 14.4 % [facility] Platelets 305 150 - 450 K/CU MM [facility] MPV 10.4 9.4 - 12.3 fL [facility] nRBC 0 0 - 0 /100 WBC [facility] % Neutros 44 % [facility] % Lymphs 38 % [facility] % Monos 8 % [facility] % Eos 9 % [facility] % Baso 1 % [facility] # Neutros 3.77 1.56 - 6.13 K/L [facility] # Lymphs 3.32 1.18 - 3.74 K/L [facility] # Monos 0.70 (H) 0.24 - 0.36 K/L [facility] # Eos 0.79 (H) 0.04 - 0.36 K/L [facility] # Baso 0.05 0.01 - 0.08 K/L [facility] Immature Granulocytes-Relative 0 0 - 1 % C [facility] Specimen Blood Performing Organization Address City/State/Zipcode Phone Number [facility] [address] [place] [address] CENTER Magnesium (07/10/2019 6:17 AM RECOVERER)Only the most recent of8 resultswithin the time period is included. Magnesium 2.0 1.6 - 2.6 mg/dL [facility] Specimen Blood Narrative Performed At Import Dispatcher ID - GABI Burns [facility] Performing Organization Address [facility] Phone [facility] [place] [phone] [place] [address] [place] Basic Metabolic Panel (07/10/2019 6:17 AM RECOVERER)Only the most recent of6 results within the time period is included. Sodium 138 136 - 145 meq/L [facility] Potassium 3.9 3.5 - 5.1 meq/L [facility] Chloride 108 (H) 98 - 107 meq/L [facility] CO2 21 (L) 22 - 29 meq/L [facility] BUN 15 7 - 21 mg/dL [facility] Creatinine 0.77 0.57 - 1.25 mg/dL [facility] Glucose 90 70 - 105 mg/dL [facility] Calcium 9.4 8.4 - 10.2 mg/dL [facility] EGFR 92Comment: ESTIMATED GFR IS mL/min/1.73 sq m [facility] NOT ACCURATE CREATININE [facility] CLEARANCE IN PREDICTING GLOMERULAR FILTRATION RATE. ESTIMATED GFR IS NOT APPLICABLE FOR DIALYSIS PATIENTS. Specimen Blood Narrative Performed At Import Dispatcher ID - GABI Burns [facility] Performing Organization Address [facility] Phone Number [address] [address] [place] POC-Glucose meter (07/08/2019 7:10 AM RECOVERER)Only the most recent of10 results within the time period is included. POC-Glucose Meter 77Comment: : TESTED AT 70 - 110 mg/dL [facility] [address] [facility], [id number]: Import Dispatcher/Neonatologist ID = [id number] for KARAN ALMANZAR Specimen Blood Performing Organization Address City/State/Zipcode Phone Number [facility] [address] [place] [phone] CENTER XR chest 1 view portable / bedside (07/06/2019 5:42 AM RECOVERER)Only the most recent of2 resultswithin the time period is included. Specimen Narrative Performed At FINAL REPORT [employer] RAD, CHEST, 1 VIEW, NON DEPT INDICATION: intubated COMPARISON: Prior day's exam FINDINGS: Portable frontal view of the c hest. IMPRESSION: Support Lines: Stable. Lungs and pleura: No consolidation or ef fusion. No pneumothorax. Heart and mediastinum: Stable contours. Additional findings: None. Signed: JR Mcpherson Robert MD Report Verified Date/Time:07/06/2019 08:27:27 Reading [facility] [employer] [facility] Reading Room Procedure Note Interface, External Ris In - 07/06/2019 8:29 AM RECOVERER FINAL REPORT RAD, CHEST, 1 VIEW, NON DEPT INDICATION: intubated COMPARISON: Prior day's exam FINDINGS: Portable frontal view of the c hest. IMPRESSION: Support Lines: Stable. Lungs and pleura: No consolidation or ef fusion. No pneumothorax. Heart and mediastinum: Stable contours. Additional findings: None. Signed: JR Mcpherson Robert MD Report Verified Date/Time: 07/06/2019 0 8:27:27 Reading Location: [place] [facility] Reading Room Performing Organization Address City/State/Zipcode Phone Number [employer] Blood gas, venous (07/06/2019 4:41 AM RECOVERER)Only the most recent of2 results within the time period is included. pH, Mamadou 7.40 7.32 - 7.42 [facility] pCO2, Mamadou 38 (L) 41 - 51 mmHg [facility] pO2, Mamadou 69 (H) 25 - 40 mmHg [facility] O2 Sat, Mamadou 93.7 (H) 40.0 - 70.0 % [facility] HCO3, Mamadou 23 21 - 29 mmol/L [facility] Base Excess, Mamadou -1.4 -2.0 - 3.0 mmol/L [facility] Patient Temperature 37.1 C [facility] FIO2 28.0 % [facility] Specimen Blood Performing Organization Address [facility] Phone Number [address] [address] CENTER Phosphorus (07/05/2019 11:28 PM RECOVERER) Phosphorus 2.7Comment: Specimen slightly 2.3 - 4.7 mg/dL [facility] hemolyzed [facility] Specimen Blood Narrative Performed At Import Dispatcher ID - DB [facility] Performing Organization Address City/[facility] Phone Number [address] [address] [place] Urinalysis w/Microscopic + Reflex to Culture (07/05/2019 8:35 PM RECOVERER) Color, UA Yellow [facility] Clarity, UA Clear [facility] Specific [place], UA 1.017 1.001 - 1.035 [facility] pH, UA 6.5 5.0 - 8.0 [facility] Protein, UA Negative Negative [facility] Glucose, UA Negative Negative [facility] Ketones, UA Negative Negative [facility] Bilirubin, UA Negative Negative [facility] Blood, UA Negative Negative [facility] Nitrite, UA Negative Negative [facility] Leukocytes, UA Moderate (A) Negative [facility] Urobilinogen, UA 0.2 0.2 - 1.0 mg/dL [facility] RBC, UA 2 /HPF [facility] WBC, UA 15 /HPF [facility] Mucus Rare [facility] Squam Epithel, UA <1 /HPF [facility] Specimen Source [facility] Specimen Urine Narrative Performed At Import Dispatcher ID - [auto] [facility] Import Dispatcher ID - lanny Performing Organization Address City/State/Zipcode Phone Number [address] [address] [place] Urine culture (07/05/2019 8:35 PM RECOVERER) Result No growth [facility] Specimen Urine Performing Organization Address City/[facility]/Zipcode Phone Number [address] [place] [address] brain without IV contrast (07/05/2019 8:10 PM RECOVERER) Specimen Narrative Performed At FINAL REPORT [facility] CT, BRAIN, WITHOUT CONTRAST INDICATION: Cerebral edema TECHNIQUE: Noncontrast axial imaging was obtained from the vertex to the skull base. Axial images were recons tructed using a bone algorithm. DOSE REDUCTION: Dose modulation, iterati ve reconstruction, and/or weight-based adjustment of the mA/kV was utilized to reduce the radiation dose to as low as reasonably a chievable. COMPARISON: None. FINDINGS: Intracranial: No intracranial hemorrhage or ab normal extra-axial collection. No evidence of acute territo rial infarct. No mass effect. No hydrocephalus. Osseous structures: No fracture. No susp icious lesion. Paranasal sinuses and mastoid air cells: Marked mucosal thickening in the bilateral maxillary sinuses, right s phenoid sinus, and scattered opacification of the ethmoid air cells. Mastoids are clear. Orbital contents: Globes are intact. IMPRESSION: No acute intracranial hemorrhage, territ orial infarct, or mass effect. If there is persistent clinical concern for intracranial pathology, MR examination is recommended for furthe r characterization. Signed: Chandu Dale MD Report Verified Date/Time:07/05/2019 20:32:55 Procedure Note Interface, External Ris In - 07/05/2019 8:35 PM RECOVERER FINAL REPORT CT, BRAIN, WITHOUT CONTRAST INDICATION: Cerebral edema TECHNIQUE: Noncontrast axial imaging was obtained from the vertex to the skull base. Axial images were recons tructed using a bone algorithm. DOSE REDUCTION: Dose modulation, iterati ve reconstruction, and/or weight-based adjustment of the mA/kV was utilized to reduce the radiation dose to as low as reasonably a chievable. COMPARISON: None. FINDINGS: Intracranial: No intracranial hemorr tessy or abnormal extra-axial collection. No evidence of acute territo rial infarct. No mass effect. No hydrocephalus. Osseous structures: No fracture. No susp icious lesion. Paranasal sinuses and mastoid air cells: Marked mucosal thickening in the bilateral maxillary sinuses, right s phenoid sinus, and scattered opacification of the ethmoid air cells. Mastoids are clear. Orbital contents: Globes are intact. IMPRESSION: No acute intracranial hemorrhage, territ orial infarct, or mass effect. If there is persistent clinical concern for intracranial pathology, MR examination is recommended for furthe r characterization. Signed: Chandu Dale MD Report Verified Date/Time: 07/05/2019 2 0:32:55 Performing Organization Address City/State/Zipcode Phone Number [facility] Sputum Culture + Gram Stain (07/05/2019 7:49 PM RECOVERER) Result <1+ Normal respiratory dimitry [facility] Gram Stain Result 1+ White blood cells seen [facility] Gram Stain Result 0-5 epithelial cells [facility] Gram Stain Result <1+ gram positive cocci [facility] Specimen Sputum Performing Organization Address [facility] Phone Number [address] [address] [place] Creatine Kinase (CK) (07/05/2019 7:49 PM RECOVERER) Total CK 25 (L) 29 - 200 U/L [facility] Specimen Blood Narrative Performed At Import Dispatcher ID - BS [facility] Performing Organization Address [facility] Phone Number [address] [address] [place] Salicylate level (07/05/2019 7:49 PM RECOVERER) Salicylate Lvl <5.0 (L) 15.0 - 30.0 mg/dL [facility] Specimen Blood Narrative Performed At Therapeutic Range: 15.0-30.0 mg/dL [facility] Toxic: >30.0 mg/dL Lethal:>70.0 mg/ dL Import Dispatcher ID - BS Performing Organization Address [facility] Phone Number [address] [address] [place] Blood Culture - Routine (Right Venipuncture) (07/05/2019 6:44 PM RECOVERER)Only the most recent of2 resultswithin the time period is included. Result No growth in 5 days [facility] Specimen Blood Performing Organization Address City/[facility] Phone Number [address] [address] [place] Blood gas, arterial (07/05/2019 6:44 PM RECOVERER) pH, Arterial 7.34 (L) 7.35 - 7.45 [facility] pCO2, Arterial 46 (H) 35 - [address] [facility] pO2, Arterial 147 (H) 80 - [address] [facility] O2 Sat, Arterial 98.7 (H) 96.0 - 97.0 % [facility] HCO3, Arterial 24 21 - 29 mmol/L [facility] Base Excess, Arterial -2.1 (L) -2.0 - 3.0 mmol/L [facility] Patient Temperature 37.5 C [facility] FIO2 40.0 % [facility] Specimen Blood, Arterial Performing Organization Address City/State/Zipcode Phone Number [facility] [address] [place] [address] CENTER Manual Differential (07/05/2019 6:26 PM RECOVERER) % Neutros 88 % [facility] % Lymphs 1 % [facility] % Monos 1 % [facility] % Bands 10 0 - 10 % [facility] # Neutros 25.43 (H) 1.56 - 6.13 K/ul [facility] # Lymphs 0.29 (L) 1.18 - 3.74 K/ul [facility] # Monos 0.29 0.24 - 0.36 K/uL [facility] # Bands 2.89 (H) 0.00 - 0.80 K/uL [facility] Total Counted 100 [facility] Giant [facility]let Present [facility] Vacuolated Neutrophils Present [facility] Polychromasia 1+ few [facility] An[facility]ocytosis 2+ moderate [facility] Microcytes 2+ moderate [facility] Platelet Conc Adequate [facility] Specimen Blood Narrative Performed At Import Dispatcher ID - Dulce [facility] User comments: Slide comments: Performing Organization Address City/State/Zipcode Phone Number [address] [address] [place] Screen, urine (07/05/2019 6:26 PM RECOVERER) Preg Test, Ur Negative [facility] Specimen Urine Performing Organization Address City/[facility] Phone Number [address] [address] [place] Drug screen, urine, comprehensive (07/05/2019 6:26 PM RECOVERER) Specimen Urine Narrative Performed At This result has an attachment that is no t available. Cortisol (07/05/2019 6:25 PM RECOVERER) Cortisol, Total 30.2 (H) 3.7 - 19.4 ug/dL [facility] Specimen Blood Narrative Performed At Import Dispatcher ID - BS [facility] [place] Performing Organization Address City/[facility] Phone Number [address] [address] [place] TSH/Free T4 If Indicated (07/05/2019 6:25 PM RECOVERER) TSH 0.93 0.35 - 4.94 uIU/mL [facility] Specimen Blood Narrative Performed At Import Dispatcher ID - BS [facility] [place] Performing Organization Address City/[facility]/Zipcode Phone Number [address] [address] [place] Toxicology screen, serum (07/05/2019 6:25 PM RECOVERER) DRUG TEST, GENERAL see note [facility], Comment: [facility]PORATED URINE,QUEST The following compounds were detected: Caffeine Norketamine (Ketamine Metabolite) Ketamine Lamotrigine Trazodone Midazolam Duloxetine Alprazolam THC-COOH For a list of compounds and limits of detection go to: http://education.Flavours/faq/NJS260 This test was developed and its analytical perfo rmance characteristics have been determined by [facility] [place], [place]. It has not been cleared or approved by the U.S. Food an d Drug Administration. This assay has been validated pu rsuant to the CLIA regulations and is used for clinical purposes. ACETONE ([facility]) None Detected [facility] METHANOL([facility]) None Detected [facility] Isopropanol([facility]) None Detected [facility] ETHANOL None Detected [facility] Comment: INCORPORATED Volatile Li gee of Detection: 5 mg/dL Specimen Blood Narrative Performed At Performing Lab [facility] 15 [email or web address] [facility], [address] [place] [address] [place] [address] Stella Yepez MD, PhD Performing Organization Address City/[facility]/Zipcode Phone Number [employer] [facility], [place] [address] [facility] [address] [facility] aPTT (07/05/2019 6:25 PM RECOVERER) PTT 28.1 22.5 - 36.0 seconds [facility] Specimen Blood Performing Organization Address City/[facility]/Zipcode Phone Number [facility] [address] [place] [address] CENTER Prothrombin time/INR (07/05/2019 6:25 PM RECOVERER) Protime 12.9 11.9 - 14.2 seconds [facility] INR 1.0 <=5.9 [facility] Specimen Blood Narrative Performed At Effective 11/01/2018: PT Reference Range [facility] Change New: 11.9-14.2Previous: 11.7-14.7 RECOMMENDED COUMADIN/WARFARIN INR THERAPY RANGES STANDARD DOSE: 2.0-3.0Includes: PROPHYLAXIS for venous thrombosis, systemic embolization; TREATMENT for venous thrombosis and/or pulmonary embolus. HIGH RISK: Target INR is 2.5-3.5 for patients wiht mechanical heart valves. Performing Organization Address City/State/Zipcode Phone Number [address] [address] [place] Fibrinogen (07/05/2019 6:25 PM RECOVERER) Fibrinogen 417 225 - 434 mg/dl [facility] Specimen Blood Performing Organization Address City/[facility] Phone Number [address] [address] [place] Lipase (07/05/2019 6:25 PM RECOVERER) Lipase <4 (L) 8 - 78 U/L [facility] Specimen Blood Narrative Performed At Import Dispatcher ID - BS [facility] [place] Performing Organization Address City/[facility] Phone Number [address] [address] [place] Amylase (07/05/2019 6:25 PM RECOVERER) Amylase 74 25 - 125 U/L [facility] Specimen Blood Narrative Performed At Import Dispatcher ID - BS [facility] Performing Organization Address City/[facility] Phone Number [address] [address] [place] Ethanol (07/05/2019 6:25 PM RECOVERER) Ethanol Lvl <10 <=10 mg/dL [facility] Specimen Blood Narrative Performed At Import Dispatcher ID - DB [facility] [place] Performing Organization Address City/[facility] Phone Number [address] [address] [place] Acetaminophen level (07/05/2019 6:25 PM RECOVERER) Acetaminophen Level <5.7 (L) 10.0 - 30.0 ug/mL [facility] Specimen Blood Narrative Performed At Therapeutic Range: 10.0-30.0 g/mL [facility] Toxic Levels:>200.0 g/mL Import Dispatcher ID - BS Performing Organization Address City/[facility]/Zipcode Phone Number [facility] [address] [place] [address] CENTER Comprehensive metabolic panel (07/05/2019 6:25 PM RECOVERER) Protein, Total 7.5 6.0 - 8.3 gm/dL [facility] Albumin 4.4 3.5 - 5.0 g/dL [facility] Alkaline Phosphatase 112 40 - 150 U/L [facility] Total Bilirubin 0.6 0.2 - 1.2 mg/dL [facility] Sodium 139 136 - 145 meq/L [facility] Potassium 4.4 3.5 - 5.1 meq/L [facility] Chloride 105 98 - 107 meq/L [facility] CO2 25 22 - 29 meq/L [facility] BUN 6 (L) 7 - 21 mg/dL [facility] Creatinine 0.84 0.57 - 1.25 mg/dL [facility] Glucose 119 (H) 70 - 105 mg/dL [facility] Calcium 8.4 8.4 - 10.2 mg/dL [facility] AST 22 5 - 34 U/L [facility] ALT 17 6 - 55 U/L [facility] EGFR 83Comment: ESTIMATED GFR mL/min/1.[address] [facility] IS NOT ACCURATE [facility] CLEARANCE IN PREDICTING GLOMERULAR FILTRATION RATE. ESTIMATED GFR IS NOT APPLICABLE FOR DIALYSIS PATIENTS. Specimen Blood Narrative Performed At Import Dispatcher ID - BS [facility] Performing Organization Address City/State/Zipcode Phone Number [facility] [address] [place] [address] CENTER after 03/06/2019 Insurance Payer Benefit Plan / Group Subscriber ID Type Phone A ddress [employer] - MGD CARE [employer] HMO POS QPOS xxxxxxxxxx HMO/POS Advance Directives For more information, please contact:[place] [id number] [place], [place] [phone] Code Status Date Activated Date Inactivated Comments Full Code 07/05/2019 5:31 PM 07/10/2019 1:28 PM This code status was determined by: Patient
--- OUTSIDE RECORDS SUMMARY | 2020-03-06 07:02 | XMS REPORT | Continuity of Care Document ---
:1995 Author Organization [facility] t Address [address] [place] [address] Care Team Providers Name Role Phone Jayy RASCON Attending Clinician 2, Lab Attending Clinician Unavailable ROSCOE Attending Clinician Unavailable Roscoe PATTON Attending Clinician Kami Rosales MD Attending Clinician Merchant PATTON Attending Clinician ROSCOE Admitting Clinician Unavailable Payers Payer Name Policy Type Policy Number Effective Date Expiration Date [address] AETNA - MGD [id number] [facility] CAREAETNA HMO - Medical POS Center [id number] MO/POS Problems Condition Condition Condition Status Onset Resolution Last Treating Co mments Source Name Details Category Date Date Treatment Clinician Date Bipolar 1 Bipolar 1 Disease Active 2019- [facility] disorder disorder 2-03 [facility] - 00:00: Medical 00 [place] Suicide Suicide Disease Active 2020-[address] [facility] attempt attempt 2-03 [facility] - 00:00: Medical 00 [place] Acute Acute Disease Active 2020-[address] [facility] metabolic metabolic 1-31 Luke [facility] - encephalop encephalop 00:00: Me dical athy athy 00 Center Acute Acute Disease Active 2019-[address] [facility] respirator respirator 1-30 Madelin kes - y failure y failure 00:00: Medi shakira with with 00 Center hypercapni hypercapni a a Seasonal Seasonal Problem Active [facility] allergic allergic [facility] - rhinitis rhinitis Memori a due to due to l pollen pollen [facility] Asthma Asthma Problem [facility] History of History of Problem Active [facility] abnormal abnormal [facility] - cervical cervical Memori a Pap smear Pap smear l [facility] Bipolar Bipolar Problem Active [facility] disorder disorder [facility] - [facility] 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 Luke [facility] - Memoria l [facility] Other Other Diagnosis Active [facility] specified specified Luke s - bacterial bacterial Dru sumi agents as agents as l the cause the cause Outp ati of of ent diseases diseases Clinic s classified classified elsewhere elsewhere Acute Acute Diagnosis Active [facility] vaginitis vaginitis [facility] - Memoria l [facility] LGSIL on LGSIL on Diagnosis Active [facility] Pap smear Pap smear Luke s - of cervix of cervix Dru sumi l [facility] Allergies, Adverse Reactions, Alerts This patient has no known allergies or adverse reactions. Social History Social Habit Start Date Stop Date Quantity Comments Source Sex Assigned At [facility] Smoking Status Start Date Stop Date Source Never smoker [facility] Medications Ordered Filled Start Stop Current Ordering Indication Dosage Frequency Signature Comments Components Source Medication Medication Date Date Medication? Clinician (SIG) Name Name lamoTRIgine 2019- No 150mg QD Take [address] (LAMICTAL) 203 mg by [facility]ukes - 150 MG 15:01: 00:00 mouth Medical tablet 14 :00 daily. [place] traZODone 2019- No 50mg QD Take [address] (DESYREL) 2- by mouth [facility]ukes - 50 MG 15:01: 00:00 nightly. Medical tablet 14 :00 [place] dextroamphe 2020- No 20mg Take [address] tamine-amph 07-09-03 by mouth. Madelin kes - etamine 15:01: 00:00 Medical (ADDERALL) 14 :00 [place] 20 mg Tab tablet esomeprazol 2019- No 40mg QD Take [address] e (NEXIUM) 07-09-03 by mouth Luke s - 40 MG 15:01: 00:00 daily. Medical capsule 14 :00 [place] ALPRAZolam 2020- No .25mg Take 0.[address] (XANAX) 2-03 02-03 mg by [facility]ukes - 0.25 MG 15:01: 00:00 mouth as Medic al tablet 14 :00 needed for Center Anxiety (pt takes this once a week). lamoTRIgine No 25mg QD Take [address] (LAMICTAL) 07-09 02-02 tablet (25 Madelin kes - 25 MG 00:00: 23:59 mg total) Medica l tablet 00 :00 by mouth Center nightly. traZODone 2019- No 50mg QD Take 1 [facility] (DESYREL) 07-09 03-04 tablet (50 Verónica es - 50 MG 00:00: 23:59 mg total) Medica l tablet 00 :00 by mouth Center nightly for 30 days. norgestimat Yes 1{tbl} QD Take [address] e-ethinyl 1-31 tablet by [facility]ukes - estradiol 10:43: mouth Medical (TRINESSA, 17 daily. Center 28,) 0.18/0.215/ 0.25 mg-35 mcg (28) per tablet Trazodone Trazodone Yes Judy [address] HCl HCl [place] at bedtime [facility] - as needed [facility] l Outpat[facility] ent Clinics [facility] Yes Judy [address] [facility] Yes Judy [address] [facility] [place] with food [facility] Adderall Adderall Yes Judy [address] [facility] [place] in the [facility] - morning Memoria l Outpat[facility] ent Clinics Nexium Nexium Yes Judy [address] [facility] Lamictal Lamictal Yes Judy [address] [facility] Wellbutrin Wellbutrin Yes Judy [address] [facility] XL XL [place] in the [facility] - morning [facility] l Out[facility] ent Clinics Xanax Xanax Yes Judy [address] [facility] [place] [facility] Flagyl Flagyl No Judy [address] [address] 06-12 [place] [facility] - 00:00 Memoria :00 l Outpati ent Clinics Vital Signs Vital Name Observation Time Observation Value Comments Source Heart rate 2019-07-10 08:31:00 112 /min [facility] Respiratory rate 2019-07-10 08:31:00 20 /min [facility] Oxygen saturation in 2019-07-10 08:31:00 99 /min [facility] Arterial blood by Medical Ce nter Pulse oximetry Systolic blood 2019-07-10 07:57:00 116 mm[Hg] [facility] Diastolic blood 2019-07-10 07:57:00 72 mm[Hg] [facility] Body temperature 2019-07-10 07:57:00 35.83 Julieta [facility] Body height 2019-07-05 20:54:[address] [facility] Body weight Measured 2019-07-05 20:54:00 89 kg [facility] BMI 2019-07-05 20:54:00 39.63 kg/m2 [facility] Procedures Procedure Date / Time Performing Clinician Source Performed RHYTHM STRIP - SCAN 2019-07-11 14:20:47 Provider, Default [facility] ECG 12-LEAD 2019-07-10 07:22:08 Jose Cruz [facility] MAGNESIUM 2019-07-10 06:17:00 [facility] BASIC METABOLIC PANEL (7) 2019-07-10 06:17:00 [facility] W/PLT COUNT & AUTO 2019-07-10 06:17:00 Jose Cruz [facility] ECG 12-LEAD 2019-07-09 07:34:27 Jose Cruz [facility] MAGNESIUM 2019-07-09 05:52:00 Jose Cruz [facility] BASIC METABOLIC PANEL (7) 2019-07-09 05:52:00 [facility] CBC W/PLT COUNT & AUTO 2019-07-09 05:52:00 [facility] 12-[facility]AD 2019-07-08 16:52:39 Unknown, Hl7 [facility] POCT-GLUCOSE METER 2019-07-08 07:10:00 Bobby, [facility] MAGNESIUM 2019-07-08 04:35:00 Jose Cruz [facility] BASIC METABOLIC PANEL (7) 2019-07-08 04:35:00 Jose Cruz [facility] CBC W/PLT COUNT & AUTO 2019-07-08 04:35:00 Jose Cruz [facility] POCT-GLUCOSE METER 2019-07-07 21:28:00 Bobby, [facility] ECG 12-LEAD 2019-07-07 17:29:01 Bobby, [facility] POCT-GLUCOSE METER 2019-07-07 12:33:00 [facility] POCT-GLUCOSE METER 2019-07-07 06:01:00 [facility] MAGNESIUM 2019-07-07 03:07:00 Jose Cruz [facility] BASIC METABOLIC PANEL (7) 2019-07-07 03:07:00 Jose Cruz [facility] CBC W/PLT COUNT & AUTO 2019-07-07 03:07:00 Jose Cruz [facility] POCT-GLUCOSE METER 2019-07-07 00:16:00 Ros[facility] POCT-GLUCOSE METER 2019-07-06 19:11:00 [facility] POCT-GLUCOSE METER 2019-07-06 11:50:00 [facility] ECG 12-LEAD 2019-07-06 09:48:26 Aram Barclay [facility] ECG 12-LEAD 2019-07-06 08:21:58 Jose Cruz [facility] XR CHEST 1 VIEW 2019-07-06 05:42:00 Jose Cruz, [facility] PORTABLE/BEDSIDE Medical Center POCT-GLUCOSE METER 2019-07-06 05:11:00 Aziza [facility] MAGNESIUM 2019-07-06 04:41:00 Jose Cruz [facility] BASIC METABOLIC PANEL (7) 2019-07-06 04:41:00 Jose Cruz, Юлия I [facility] BLOOD GAS, VENOUS 2019-07-06 04:41:00 Deny [facility] CBC W/PLT COUNT & AUTO 2019-07-06 04:41:00 Jose Cruz [facility] ECG 12-LEAD 2019-07-06 03:40:57 Deny [facility] ECG 12-LEAD 2019-07-06 01:44:46 Deny [facility] BASIC METABOLIC PANEL (7) 2019-07-05 23:28:[address] [facility] PHOSPHORUS 2019-07-05 23:28:00 Deny [facility] BLOOD GAS, VENOUS 2019-07-05 23:28:00 Deny [facility] MAGNESIUM 2019-07-05 23:28:00 Deny Aram Grant [facility] POCT-GLUCOSE METER 2019-07-05 23:26:00 Aziza [facility] ECG 12-LEAD 2019-07-05 22:57:46 Deny [facility] URINE CULTURE 2019-07-05 20:35:00 Jose Cruz [facility] URINALYSIS W/ REFLEX 2019-07-05 20:35:00 Jose Cruz [facility] URINE CULTURE [facility] CT BRAIN WITHOUT IV 2019-07-05 20:10:[address] [facility] SPUTUM CULTURE + GRAM 2019-07-05 19:49:00 Deny [facility] CREATINE KINASE (CK) 2019-07-05 19:49:00 DenyAram [facility] SALICYLATE LEVEL 2019-07-05 19:49:00 DenyAram [facility] MAGNESIUM 2019-07-05 19:49:00 DenyAram [facility] POCT-GLUCOSE METER 2019-07-05 18:57:00 Aziza [facility] BLOOD CULTURE 2019-07-05 18:44:00 Jose Cruz [facility] BLOOD GAS, ARTERIAL 2019-07-05 18:44:00 Jose Cruz [facility] DRUG SCREEN, URINE, 2019-07-05 18:26:00 Jose Cruz [facility] SCREEN, URINE 2019-07-05 18:26:00 Jose Cruz [facility] CBC W/PLT COUNT & AUTO 2019-07-05 18:26:00 Jose Cruz [facility] (CELLAVISION MANUAL DIFF) 2019-07-05 18:26:00 Jose Cruz [facility] BLOOD CULTURE 2019-07-05 18:25:00 Jose Cruz [facility] PROTHROMBIN TIME/INR 2019-07-05 18:25:00 Jose Cruz [facility] APTT 2019-07-05 18:25:00 Jose Cruz [facility] FIBRINOGEN 2019-07-05 18:25:00 Jose Cruz [facility] COMPREHENSIVE METABOLIC 2019-07-05 18:25:00 Jose Cruz [facility] TOXICOLOGY SCREEN, SERUM 2019-07-05 18:25:00 Jose Cruz [facility] ETHANOL 2019-07-05 18:25:00 Jose Cruz [facility] MAGNESIUM 2019-07-05 18:25:00 Jose Cruz [facility] LIPASE 2019-07-05 18:25:00 [facility] AM[facility] 2019-07-05 18:25:[address] [facility] TSH/FREE T4 IF INDICATED 2019-07-05 18:25:00 [facility] CORTISOL 2019-07-05 18:25:00 [facility] XR CHEST 1 VIEW 2019-07-05 17:53:00 [facility] PORTABLE/BEDSIDE Medical Center Plan of Care Planned Activity Planned Date Details Comments Source Future Scheduled 2020-02-05 INFLUENZA VACCINE (#1) [facility] Test 00:00:00 [code = INFLUENZA Medical Ce nter VACCINE (#1)] Future Scheduled [facility]procedure) [code = 906431134] Future Scheduled [facility] (procedure) [code = [facility] 65940420] Future Scheduled 2001 [facility]CCAL [facility]INE [facility] 00:00:00 2-64 YEARS AT RISK (1 Medica l Center of 1 - PPSV23) [code = PNEUMOCOCCAL VACCINE 2-64 YEARS AT RISK (1 of 1 - PPSV23)] Encounters Start End Encounter Admission Attending Care Care Encounter Source Date/Time Date/Time Type Type Clinicians Facility Department ID 2020-02-25 2020-02-25 Case Jayy [facility] [id number] 00:00:00 00:00:00 Management Jenni Garcia [id number] [place] [id number] Professio [phone] [address] 2020-02-22 2020-02-22 Telephone Jayy OKLUZMARIA [id number] 00:00:00 00:00:00 Jenni Garcia [id number] [place] [id number] Professio [id number] [address] 2020-02-18 2020-02-18 Data Technical Lead 2, Adc Lab [facility] [id number] 13:05:38 13:20:38 Visit Radha [id number] [place] [id number] Profprachiio [id number] [facility] [address] [facility] 2020-02-14 2020-02-14 Office SHARRI Hope [id number] 14:45:44 15:40:05 Visit Jenni Garcia [id number] [place] [id number] Profbarrington [id number] [facility] 2017-11-08 2017-11-08 [facility] [id number] 10:45:00 10:45:00 t [facility] 2017-10-24 2017-10-24 [facility] [id number] 14:00:00 14:00:00 t [facility] Results Test Description Test Time Test Comments Results Result Comments Source Toxicology screen, serum 2019-07-12 09:24:00 Test Item Value Reference Range Interpretation Comme nts DRUG TEST, see note The following c ompounds were detected: Caffeine GENERAL Norketamine (Ke tamine Metabolite) Ketamine TOXICOLOGY, Lamotrigine Trazodone Midazolam Duloxetine URINE,QUEST Alprazolam THC-COOH For a list of compounds and (test code = limits of detec tion go 3052) to:http://educa tion.gestigon.com/faq/UFO096 This test was d aparna and its analytical performancechar acteristics have been determined by [employer] [place], [place]. It hasnot been fanta ared or approved by the U.S. Food and DrugAdministrat ion. This assay has been validated pursuantto the CLIA regulations and is used for clinicalpurpose s. ACETONE None Detected (QUEST) (test code = 3323524) METHANOL(QUEST None Detected ) (test code = 5536897) Isopropanol(Qu None Detected est) (test code = 3055) ETHANOL (test None Detected Volatile Limit of Detection: 5 code = 2968) mg/dL MAVERICK (test code Performing Lab = MAVERICK) [address] [employer] [facility], [address] [place] [address] Stella Yepez MD, PhD [facility] - [facility] (Right Venipuncture) 2019-07-10 19:00:00 Test Item Value Reference Range Interpretation Comments Result (test code = No growth in 5 days 6463-4) [facility] [id number] 19:00:00 Test Item Value Reference Range Interpretation Comments CULTURE (BEAKER) (test No growth in 5 days code = 1095) BLOOD [id number] 19:00:00 Test Item Value Reference Range Interpretation Comments CULTURE (BEAKER) (test No growth in 5 days code = 1095) ECG 12 [id number] 13:45:26Interface, External Ris In - 07/10/2019 1:45 PM CSTVentricular Rate 92 BPMAtrial Rate 92 BPMP-R Interval 134 msQRS Duration 62 msQ-T Interval 334 msQTC Calculation(Bazett) 413 msP [place] 71 degreesR [place] 60 degreesT [place] 57 degreesNormal sinus rhythmNormal ECGWhen compared with ECG of 09-JUL-2019 07:34,No significant change was foundConfirmed by MD MATILDA, [place] ([id number]) on 07/10/2019 1:45:23 [facility] with platelet count + automated [id number] 07:27:00 Test Item Value Reference Range Interpretation Comments WBC (test code = 6690-2) 8.7 3.5- 10.5 K/L RBC (test code = 789-8) 4.38 3.93- 5.22 M/L MCHC (test code = 786-4) 33.8 32.2- 35.5 GM/DL Hematocrit (test code = 4544-3) 36.7 % 34.1-44.9 MCV (test code = 787-2) 83.8 fL 79.4-94.8 MCH (test code = 785-6) 28.3 pg 25.6-32.2 RDW (test code = 788-0) 13.5 % 11.7-14.4 Platelets (test code = 777-3) 305 150- 450 K/CU MM MPV (test code = 15105-8) 10.4 fL 9.4-12.3 nRBC (test code = 413) 0 0- 0 /100 WBC % Neutros (test code = 429) 44 % % Lymphs (test code = 430) 38 % % Monos (test code = 431) 8 % % Eos (test code = 432) 9 % % Baso (test code = 437) 1 % # Neutros (test code = 670) 3.77 1.56- 6.13 K/L # Lymphs (test code = 414) 3.32 1.18- 3.74 K/L # Monos (test code = 415) 0.70 0.24- 0.36 K/L H # Eos (test code = 416) 0.79 0.04- 0.36 K/L H # Baso (test code = 417) 0.05 0.01- 0.08 K/L Immature Granulocytes-Relative 0 % 0-1 (test code = 2801) Lab Interpretation (test code = Abnormal 86262-8) [facility] W/PLT COUNT & AUTO [id number] 07:27:00 Test Item Value Reference Range Interpretation Comments WHITE BLOOD CELL COUNT (BEAKER) 8.7 K/ L 3.5-10.5 (test code = 775) RED BLOOD CELL COUNT (BEAKER) 4.38 M/ L 3.93-5.22 (test code = 761) HEMOGLOBIN (BEAKER) (test code = 12.4 GM/DL 11.2-15.7 410) HEMATOCRIT (BEAKER) (test code = 36.7 % 34.1-44.9 411) MEAN CORPUSCULAR VOLUME (BEAKER) 83.8 fL 79.4-94.8 (test code = 753) MEAN CORPUSCULAR HEMOGLOBIN 28.3 pg 25.6-32.2 (BEAKER) (test code = 751) MEAN CORPUSCULAR HEMOGLOBIN CONC 33.8 GM/DL 32.2-35.5 (BEAKER) (test code = 752) RED CELL DISTRIBUTION WIDTH 13.5 % 11.7-14.4 (BEAKER) (test code = 412) PLATELET COUNT (BEAKER) (test 305 K/CU MM 150-450 code = 756) MEAN PLATELET VOLUME (BEAKER) 10.4 fL 9.4-12.3 (test code = 754) NUCLEATED RED BLOOD CELLS 0 /100 WBC 0-0 (BEAKER) (test code = 413) NEUTROPHILS RELATIVE PERCENT 44 % (BEAKER) (test code = 429) LYMPHOCYTES RELATIVE PERCENT 38 % (BEAKER) (test code = 430) MONOCYTES RELATIVE PERCENT 8 % (BEAKER) (test code = 431) EOSINOPHILS RELATIVE PERCENT 9 % (BEAKER) (test code = 432) BASOPHILS RELATIVE PERCENT 1 % (BEAKER) (test code = 437) NEUTROPHILS ABSOLUTE COUNT 3.77 K/ L 1.56-6.13 (BEAKER) (test code = 670) LYMPHOCYTES ABSOLUTE COUNT 3.32 K/ L 1.18-3.74 (BEAKER) (test code = 414) MONOCYTES ABSOLUTE COUNT (BEAKER) 0.70 K/ L 0.24-0.36 H (test code = 415) EOSINOPHILS ABSOLUTE COUNT 0.79 K/ L 0.04-0.36 H (BEAKER) (test code = 416) BASOPHILS ABSOLUTE COUNT (BEAKER) 0.05 K/ L 0.01-0.08 (test code = 417) IMMATURE GRANULOCYTES-RELATIVE 0 % 0-1 PERCENT (BEAKER) (test code = 2801) Basic Metabolic [id number] 07:26:00 Test Item Value Reference Range Interpretation Comments Sodium (test code = 138 meq/L 628-795 2336-2) Potassium (test code = 3.9 meq/L 3.5-5.1 2823-3) Chloride (test code = 108 meq/L 98-107 H 2074-0) CO2 (test code = 21 meq/L 22-29 L 8-9) BUN (test code = 15 mg/dL 7-21 3094-0) Creatinine (test code 0.77 mg/dL 0.57-1.25 = 2160-0) Glucose (test code = 90 mg/dL 70-105 2345-7) Calcium (test code = 9.4 mg/dL 8.4-10.2 08481-4) EGFR (test code = 92 mL/min/1.73 [place] [address]-6) NOT ACCURATE CREATININE CLEARANCE IN PREDICTING GLOMERULAR FILTRATION RATE . ESTIMATED GFR I S NOT APPLICABLE FOR DIALYSIS PATIENTS. MAVERICK (test code = MAVERICK) Practice Physician ID - GABI Burns Lab Interpretation Abnormal (test code = 43043-2) [facility] 07:26[facility]00 Test Item Value Reference Range Interpretation Comments Magnesium (test code = 2.0 mg/dL 1.6-2.6 80660-5) MAVERICK (test code = MAVERICK) Practice Physician ID - GABI Burns Lab Interpretation (test Normal code = 56733-1) [facility]00 Test Item Value Reference Range Interpretation Comments MAGNESIUM (BEAKER) (test code = 2.0 mg/dL 1.6-2.6 627) Practice Physician ID - GABI MBASIC METABOLIC [id number] 07:26:00 Test Item Value Reference Range Interpretation Comments SODIUM (BEAKER) 138 meq/L 136-145 (test code = 381) POTASSIUM (BEAKER) 3.9 meq/L 3.5-5.1 (test code = 379) CHLORIDE (BEAKER) 108 meq/L 98-107 H (test code = 382) CO2 (BEAKER) (test 21 meq/L 22-29 L code = 355) BLOOD UREA NITROGEN 15 mg/dL 7-21 (BEAKER) (test code = 354) CREATININE (BEAKER) 0.77 mg/dL 0.57-1.25 (test code = 358) GLUCOSE RANDOM 90 mg/dL 70-105 (BEAKER) (test code = 652) CALCIUM (BEAKER) 9.4 mg/dL 8.4-10.2 (test code = 697) EGFR (BEAKER) (test 92 mL/min/1.73 ESTIMA GUILLERMO GFR IS code = 1092) sq m NOT ACCURATE CREATININE CLEARANCE IN PREDICTING GLOMERULAR FILTRATION RATE . ESTIMATED GFR I S NOT APPLICABLE FOR DIALYSIS PATIEN TS. Practice Physician ID - GABI [id number] 07:05:00 Test Item Value Reference Range Interpretation Comments MAGNESIUM (BEAKER) (test code = 2.1 mg/dL 1.6-2.6 627) Practice Physician ID Amanda MANLEY LBASIC METABOLIC [id number] 07:05:00 Test Item Value Reference Range Interpretation Comments SODIUM (BEAKER) 141 meq/L 136-145 (test code = 381) POTASSIUM (BEAKER) 3.8 meq/L 3.5-5.1 (test code = 379) CHLORIDE (BEAKER) 110 meq/L 98-107 H (test code = 382) CO2 (BEAKER) (test 23 meq/L 22-29 code = 355) BLOOD UREA NITROGEN 15 mg/dL 7-21 (BEAKER) (test code = 354) CREATININE (BEAKER) 0.85 mg/dL 0.57-1.25 (test code = 358) GLUCOSE RANDOM 87 mg/dL 70-105 (BEAKER) (test code = 652) CALCIUM (BEAKER) 9.6 mg/dL 8.4-10.2 (test code = 697) EGFR (BEAKER) (test 82 mL/min/1.73 ESTIMA GUILLERMO GFR IS code = 1092) sq m NOT ACCURATE CREATININE CLEARANCE IN PREDICTING GLOMERULAR FILTRATION RATE . ESTIMATED GFR I S NOT APPLICABLE FOR DIALYSIS PATIEN TS. Practice Physician ID - PIAYA LCBC W/PLT COUNT & AUTO [id number] 07:01:00 Test Item Value Reference Range Interpretation Comments WHITE BLOOD CELL COUNT (BEAKER) 8.4 K/ L 3.5-10.5 (test code = 775) RED BLOOD CELL COUNT (BEAKER) 4.62 M/ L 3.93-5.22 (test code = 761) HEMOGLOBIN (BEAKER) (test code = 13.1 GM/DL 11.2-15.7 410) HEMATOCRIT (BEAKER) (test code = 38.5 % 34.1-44.9 411) MEAN CORPUSCULAR VOLUME (BEAKER) 83.3 fL 79.4-94.8 (test code = 753) MEAN CORPUSCULAR HEMOGLOBIN 28.4 pg 25.6-32.2 (BEAKER) (test code = 751) MEAN CORPUSCULAR HEMOGLOBIN CONC 34.0 GM/DL 32.2-35.5 (BEAKER) (test code = 752) RED CELL DISTRIBUTION WIDTH 13.6 % 11.7-14.4 (BEAKER) (test code = 412) PLATELET COUNT (BEAKER) (test 302 K/CU MM 150-450 code = 756) MEAN PLATELET VOLUME (BEAKER) 10.6 fL 9.4-12.3 (test code = 754) NUCLEATED RED BLOOD CELLS 0 /100 WBC 0-0 (BEAKER) (test code = 413) NEUTROPHILS RELATIVE PERCENT 31 % (BEAKER) (test code = 429) LYMPHOCYTES RELATIVE PERCENT 48 % (BEAKER) (test code = 430) MONOCYTES RELATIVE PERCENT 9 % (BEAKER) (test code = 431) EOSINOPHILS RELATIVE PERCENT 12 % (BEAKER) (test code = 432) BASOPHILS RELATIVE PERCENT 1 % (BEAKER) (test code = 437) NEUTROPHILS ABSOLUTE COUNT 2.60 K/ L 1.56-6.13 (BEAKER) (test code = 670) LYMPHOCYTES ABSOLUTE COUNT 4.03 K/ L 1.18-3.74 H (BEAKER) (test code = 414) MONOCYTES ABSOLUTE COUNT (BEAKER) 0.73 K/ L 0.24-0.36 H (test code = 415) EOSINOPHILS ABSOLUTE COUNT 0.99 K/ L 0.04-0.36 H (BEAKER) (test code = 416) BASOPHILS ABSOLUTE COUNT (BEAKER) 0.06 K/ L 0.01-0.08 (test code = 417) IMMATURE GRANULOCYTES-RELATIVE 0 % 0-1 PERCENT (BEAKER) (test code = 2801) Sputum Culture + Gram [id number] 12:53:00 Test Item Value Reference Range Interpretation Comments Result (test code = <1+ Normal respiratory 6463-4) dimitry present Gram Stain Result <1+ gram positive cocci (test code = 1123) [facility] UCLAPUTUM CULTURE + GRAM [id number] 12:53:00 Test Item Value Reference Range Interpretation Comments CULTURE (BEAKER) <1+ Normal respiratory (test code = 1095) dimitry present GRAM STAIN RESULT 1+ White blood cells (BEAKER) (test code = seen 1123) GRAM STAIN RESULT 0-5 epithelial cells (BEAKER) (test code = 16531) GRAM STAIN RESULT <1+ gram positive cocci (BEAKER) (test code = 35489) Urine [id number] 10:05:00 Test Item Value Reference Range Interpretation Comments Result (test code = 6463-4) No growth [facility] [id number] 07:22:00 Test Item Value Reference Range Interpretation Comments POC-Glucose Meter (test 77 mg/dL 70-110 : TE STED AT [facility] code = 1538) [address] [place], [address]: Practice Physician/Techni sincere ID = [id number] for ARLEN ALMANZAR ERA Lab Interpretation (test Normal code = 00585-9) [facility]SE [id number] 07:22:00 Test Item Value Reference Range Interpretation Comments POC-GLUCOSE METER 77 mg/dL 70-110 : TESTED A T [facility] 6720 (BEAKER) (test code = LARS Garvin [facility], 1538) [address]: Practice Physician/Techni sincere ID = [id number] for KARAN CHAUDHARI [id number] 06:57:00 Test Item Value Reference Range Interpretation Comments MAGNESIUM (BEAKER) (test code = 1.8 mg/dL 1.6-2.6 627) Practice Physician ID - SINDHU LBASIC METABOLIC [id number] 06:57:00 Test Item Value Reference Range Interpretation Comments SODIUM (BEAKER) 140 meq/L 136-145 (test code = 381) POTASSIUM (BEAKER) 3.6 meq/L 3.5-5.1 (test code = 379) CHLORIDE (BEAKER) 108 meq/L 98-107 H (test code = 382) CO2 (BEAKER) (test 23 meq/L 22-29 code = 355) BLOOD UREA NITROGEN 13 mg/dL 7-21 (BEAKER) (test code = 354) CREATININE (BEAKER) 0.80 mg/dL 0.57-1.25 (test code = 358) GLUCOSE RANDOM 72 mg/dL 70-105 (BEAKER) (test code = 652) CALCIUM (BEAKER) 9.6 mg/dL 8.4-10.2 (test code = 697) EGFR (BEAKER) (test 88 mL/min/1.73 ESTIMA GUILLERMO GFR IS code = 1092) sq m NOT ACCURATE CREATININE CLEARANCE IN PREDICTING GLOMERULAR FILTRATION RATE . ESTIMATED GFR I S NOT APPLICABLE FOR DIALYSIS PATIEN TS. Practice Physician ID - SINDHU LCBC W/PLT COUNT & AUTO [id number] 06:09:00 Test Item Value Reference Range Interpretation Comments WHITE BLOOD CELL COUNT (BEAKER) 7.5 K/ L 3.5-10.5 (test code = 775) RED BLOOD CELL COUNT (BEAKER) 4.61 M/ L 3.93-5.22 (test code = 761) HEMOGLOBIN (BEAKER) (test code = 12.6 GM/DL 11.2-15.7 410) HEMATOCRIT (BEAKER) (test code = 38.7 % 34.1-44.9 411) MEAN CORPUSCULAR VOLUME (BEAKER) 83.9 fL 79.4-94.8 (test code = 753) MEAN CORPUSCULAR HEMOGLOBIN 27.3 pg 25.6-32.2 (BEAKER) (test code = 751) MEAN CORPUSCULAR HEMOGLOBIN CONC 32.6 GM/DL 32.2-35.5 (BEAKER) (test code = 752) RED CELL DISTRIBUTION WIDTH 13.6 % 11.7-14.4 (BEAKER) (test code = 412) PLATELET COUNT (BEAKER) (test 248 K/CU MM 150-450 code = 756) MEAN PLATELET VOLUME (BEAKER) 10.9 fL 9.4-12.3 (test code = 754) NUCLEATED RED BLOOD CELLS 0 /100 WBC 0-0 (BEAKER) (test code = 413) NEUTROPHILS RELATIVE PERCENT 37 % (BEAKER) (test code = 429) LYMPHOCYTES RELATIVE PERCENT 41 % (BEAKER) (test code = 430) MONOCYTES RELATIVE PERCENT 10 % (BEAKER) (test code = 431) EOSINOPHILS RELATIVE PERCENT 11 % (BEAKER) (test code = 432) BASOPHILS RELATIVE PERCENT 1 % (BEAKER) (test code = 437) NEUTROPHILS ABSOLUTE COUNT 2.80 K/ L 1.56-6.13 (BEAKER) (test code = 670) LYMPHOCYTES ABSOLUTE COUNT 3.09 K/ L 1.18-3.74 (BEAKER) (test code = 414) MONOCYTES ABSOLUTE COUNT (BEAKER) 0.71 K/ L 0.24-0.36 H (test code = 415) EOSINOPHILS ABSOLUTE COUNT 0.83 K/ L 0.04-0.36 H (BEAKER) (test code = 416) BASOPHILS ABSOLUTE COUNT (BEAKER) 0.05 K/ L 0.01-0.08 (test code = 417) IMMATURE GRANULOCYTES-RELATIVE 0 % 0-1 PERCENT (BEAKER) (test code = 2801) POCT-GLUCOSE [id number] 21:44:00 Test Item Value Reference Range Interpretation Comments POC-GLUCOSE METER 86 mg/dL 70-110 : TESTED A T [facility] 6720 (BEAKER) (test code = [facility], 1538) [address]: Practice Physician/Techni sincere ID = [id number] for SUMI LEAHY POCT-GLUCOSE [id number] 12:45:00 Test Item Value Reference Range Interpretation Comments POC-GLUCOSE METER 91 mg/dL 70-110 : TESTED A T [facility] 6720 (BEAKER) (test code = [facility], 1538) [address]: Practice Physician/Techni sincere ID = [id number] for Juan Pablo wang, Rosette POCT-GLUCOSE [id number] 06:13:00 Test Item Value Reference Range Interpretation Comments POC-GLUCOSE METER 89 mg/dL 70-110 : TESTED A T [facility] 6720 (BEAKER) (test code = [facility], 1538) [address]: Practice Physician/Techni sincere ID = [id number] for CHRIS LYNN [id number] 03:58:00 Test Item Value Reference Range Interpretation Comments MAGNESIUM (BEAKER) (test code = 2.0 mg/dL 1.6-2.6 627) Practice Physician ID Amanda SCHRADER WBASIC METABOLIC [id number] 03:58:00 Test Item Value Reference Range Interpretation Comments SODIUM (BEAKER) 142 meq/L 136-145 (test code = 381) POTASSIUM (BEAKER) 3.7 meq/L 3.5-5.1 (test code = 379) CHLORIDE (BEAKER) 112 meq/L 98-107 H (test code = 382) CO2 (BEAKER) (test 24 meq/L 22-29 code = 355) BLOOD UREA NITROGEN 10 mg/dL 7-21 (BEAKER) (test code = 354) CREATININE (BEAKER) 0.80 mg/dL 0.57-1.25 (test code = 358) GLUCOSE RANDOM 83 mg/dL 70-105 (BEAKER) (test code = 652) CALCIUM (BEAKER) 9.1 mg/dL 8.4-10.2 (test code = 697) EGFR (BEAKER) (test 88 mL/min/1.73 ESTIMA GUILLERMO GFR IS code = 1092) sq m NOT ACCURATE CREATININE CLEARANCE IN PREDICTING GLOMERULAR FILTRATION RATE . ESTIMATED GFR I S NOT APPLICABLE FOR DIALYSIS PATIEN TS. Practice Physician ID Amanda SCHRADER WCBC W/PLT COUNT & AUTO [id number] 03:17:00 Test Item Value Reference Range Interpretation Comments WHITE BLOOD CELL COUNT (BEAKER) 11.1 K/ L 3.5-10.5 H (test code = 775) RED BLOOD CELL COUNT (BEAKER) 3.95 M/ L 3.93-5.22 (test code = 761) HEMOGLOBIN (BEAKER) (test code = 11.2 GM/DL 11.2-15.7 410) HEMATOCRIT (BEAKER) (test code = 33.1 % 34.1-44.9 L 411) MEAN CORPUSCULAR VOLUME (BEAKER) 83.8 fL 79.4-94.8 (test code = 753) MEAN CORPUSCULAR HEMOGLOBIN 28.4 pg 25.6-32.2 (BEAKER) (test code = 751) MEAN CORPUSCULAR HEMOGLOBIN CONC 33.8 GM/DL 32.2-35.5 (BEAKER) (test code = 752) RED CELL DISTRIBUTION WIDTH 13.5 % 11.7-14.4 (BEAKER) (test code = 412) PLATELET COUNT (BEAKER) (test 224 K/CU MM 150-450 code = 756) MEAN PLATELET VOLUME (BEAKER) 10.5 fL 9.4-12.3 (test code = 754) NUCLEATED RED BLOOD CELLS 0 /100 WBC 0-0 (BEAKER) (test code = 413) NEUTROPHILS RELATIVE PERCENT 54 % (BEAKER) (test code = 429) LYMPHOCYTES RELATIVE PERCENT 34 % (BEAKER) (test code = 430) MONOCYTES RELATIVE PERCENT 7 % (BEAKER) (test code = 431) EOSINOPHILS RELATIVE PERCENT 4 % (BEAKER) (test code = 432) BASOPHILS RELATIVE PERCENT 1 % (BEAKER) (test code = 437) NEUTROPHILS ABSOLUTE COUNT 5.92 K/ L 1.56-6.13 (BEAKER) (test code = 670) LYMPHOCYTES ABSOLUTE COUNT 3.76 K/ L 1.18-3.74 H (BEAKER) (test code = 414) MONOCYTES ABSOLUTE COUNT (BEAKER) 0.81 K/ L 0.24-0.36 H (test code = 415) EOSINOPHILS ABSOLUTE COUNT 0.49 K/ L 0.04-0.36 H (BEAKER) (test code = 416) BASOPHILS ABSOLUTE COUNT (BEAKER) 0.06 K/ L 0.01-0.08 (test code = 417) IMMATURE GRANULOCYTES-RELATIVE 0 % 0-1 PERCENT (BANNER) (test code = 2801) POCT-GLUCOSE [id number] 00:28:00 Test Item Value Reference Range Interpretation Comments POC-GLUCOSE METER 84 mg/dL 70-110 : TESTED A T [facility] 6720 (BANNER) (test code = [facility], 1538) [address]: Practice Physician/Techni sincere ID = [id number] for SAFF CHRIS MAX POCT-GLUCOSE [id number] 19:25:00 Test Item Value Reference Range Interpretation Comments POC-GLUCOSE METER 120 mg/dL 70-110 H : [facility] ([facility]NER[facility] (test code = [facility], 1538) [address]: Practice Physician/Techni sincere ID = [id number] for LL OYD, TIKEYA POCT-GLUCOSE [id number] 12:03:00 Test Item Value Reference Range Interpretation Comments POC-GLUCOSE METER 108 mg/dL 70-110 : Pt. on I V insulin: (BANNER) (test code = TESTED AT [facility] 6720 1538) [facility], [address]: Practice Physician/Techni sincere ID = [id number] for LL OYD, TIKEYA RAD, CHEST, 1 VIEW, NON [id number] 08:27:00Reason for exam:- >intubatedShould this be performed at the bedside?->YesFINAL REPORT RAD, CHEST, 1 VIEW, NON DEPT INDICATION: intubated COMPARISON: Prior day's exam FINDINGS: Portable frontal view of the chest. IMPRESSION: Support Lines: Stable. Lungs and pleura: No consolidation or effusion. No pneumothorax.Heart and mediastinum: Stable contours. Additional findings: None. Signed: JR Mcpherson Robert MDReport Verified Date/Time: 07/06/2019 08:27:27 Reading Location: [facility] Reading Room XR chest 1 view portable / [id number] 08:27:00Interface, External Ris In - 07/06/2019 8:29 AM CSTFINAL REPORT RAD, CHEST, 1 VIEW, NON DEPT INDICATION: intubated COMPARISON: Prior day's exam FINDINGS: Portable frontal view of the chest. IMPRESSION: Support Lines: Stable. Lungs and pleura: No consolidation or effusion. Nopneumothorax.Heart and mediastinum: Stable contours. Additional findings: None. Signed: JR Mcpherson Robert MDReport Verified Date/Time: 07/06/2019 08:27:27 Reading Location: [facility] Reading Room [facility] W/PLT COUNT & AUTO [id number] 06:23:00 Test Item Value Reference Range Interpretation Comments WHITE BLOOD CELL COUNT (BEAKER) 20.3 K/ L 3.5-10.5 H (test code = 775) RED BLOOD CELL COUNT (BEAKER) 4.45 M/ L 3.93-5.22 (test code = 761) HEMOGLOBIN (BEAKER) (test code = 12.5 GM/DL 11.2-15.7 410) HEMATOCRIT (BEAKER) (test code = 37.9 % 34.1-44.9 411) MEAN CORPUSCULAR VOLUME (BEAKER) 85.2 fL 79.4-94.8 (test code = 753) MEAN CORPUSCULAR HEMOGLOBIN 28.1 pg 25.6-32.2 (BEAKER) (test code = 751) MEAN CORPUSCULAR HEMOGLOBIN CONC 33.0 GM/DL 32.2-35.5 (BEAKER) (test code = 752) RED CELL DISTRIBUTION WIDTH 13.5 % 11.7-14.4 (BEAKER) (test code = 412) PLATELET COUNT (BEAKER) (test 335 K/CU MM 150-450 code = 756) MEAN PLATELET VOLUME (BEAKER) 10.8 fL 9.4-12.3 (test code = 754) NUCLEATED RED BLOOD CELLS 0 /100 WBC 0-0 (BEAKER) (test code = 413) NEUTROPHILS RELATIVE PERCENT 87 % (BEAKER) (test code = 429) LYMPHOCYTES RELATIVE PERCENT 7 % (BEAKER) (test code = 430) MONOCYTES RELATIVE PERCENT 6 % (BEAKER) (test code = 431) EOSINOPHILS RELATIVE PERCENT 0 % (BEAKER) (test code = 432) BASOPHILS RELATIVE PERCENT 0 % (BEAKER) (test code = 437) NEUTROPHILS ABSOLUTE COUNT 17.71 K/ L 1.56-6.13 H (BEAKER) (test code = 670) LYMPHOCYTES ABSOLUTE COUNT 1.34 K/ L 1.18-3.74 (BEAKER) (test code = 414) MONOCYTES ABSOLUTE COUNT (BEAKER) 1.11 K/ L 0.24-0.36 H (test code = 415) EOSINOPHILS ABSOLUTE COUNT 0.00 K/ L 0.04-0.36 L (BEAKER) (test code = 416) BASOPHILS ABSOLUTE COUNT (BEAKER) 0.02 K/ L 0.01-0.08 (test code = 417) IMMATURE GRANULOCYTES-RELATIVE 0 % 0-1 PERCENT (BEAKER) (test code = 2801) Blood gas, [id number] 06:21:00 Test Item Value Reference Range Interpretation Comments pH, Mamadou (test code = 2746-6) 7.40 7.32-7.42 pCO2, Mamadou (test code = 755) 38 41- 51 mmHg L pO2, Mamadou (test code = 2705-2) 69 25- 40 mmHg H O2 Sat, Mamadou (test code = 2711-0) 93.7 % 40.0-70.0 H HCO3, Mamadou (test code = 93947-0) 23 mmol/L 21-29 Base Excess, Mamadou (test code = -1.4 mmol/L -2.0-3.0 1927-3) Patient Temperature (test code = 37.1 C 8310-5) FIO2 (test code = 1819) 28 % Lab Interpretation (test code = Abnormal 59480-4) [facility] [id number] 06:21:00 Test Item Value Reference Range Interpretation Comments PH VENOUS (BEAKER) (test code = 7.40 7.32-7.42 701) PCO2 VENOUS (BEAKER) (test code = 38 mmHg 41-51 L 755) PO2 VENOUS (BEAKER) (test code = 69 mmHg 25-40 H 702) O2 SATURATION VENOUS (BEAKER) 93.7 % 40.0-70.0 H (test code = 703) HCO3 VENOUS (BEAKER) (test code = 23 mmol/L 21-29 705) BASE EXCESS VENOUS (BEAKER) (test -1.4 mmol/L -2.0-3.0 code = 704) PATIENT TEMPERATURE (BEAKER) 37.1 C (test code = 1818) FIO2 (BEAKER) (test code = 1819) 28.0 % [id number] 06:04:00 Test Item Value Reference Range Interpretation Comments MAGNESIUM (BEAKER) 2.4 mg/dL 1.6-2.6 Specimen slightly (test code = 627) hemolyzed Practice Physician ID - PIAYA LBASIC METABOLIC [id number] 06:04:00 Test Item Value Reference Range Interpretation Comments SODIUM (BEAKER) 135 meq/L 136-145 L (test code = 381) POTASSIUM (BEAKER) 4.3 meq/L 3.5-5.1 Specimen slightly (test code = 379) hemolyzed CHLORIDE (BEAKER) 105 meq/L 98-107 (test code = 382) CO2 (BEAKER) (test 21 meq/L 22-29 L code = 355) BLOOD UREA NITROGEN 5 mg/dL 7-21 L (BEAKER) (test code = 354) CREATININE (BEAKER) 0.73 mg/dL 0.57-1.25 Specimen slightly (test code = 358) hemolyzed GLUCOSE RANDOM 111 mg/dL 70-105 H (BEAKER) (test code = 652) CALCIUM (BEAKER) 9.0 mg/dL 8.4-10.2 (test code = 697) EGFR (BEAKER) (test 98 mL/min/1.73 ESTIMA GUILLERMO GFR IS code = 1092) sq m NOT ACCURATE CREATININE CLEARANCE IN PREDICTING GLOMERULAR FILTRATION RATE . ESTIMATED GFR I S NOT APPLICABLE FOR DIALYSIS PATIEN TS. Practice Physician ID - PIAYA LPOCT-GLUCOSE [id number] 05:22:00 Test Item Value Reference Range Interpretation Comments POC-GLUCOSE METER 116 mg/dL 70-110 H : Notified RN/MD: (ELLIE) (test code = TESTED AT [facility] 6714 9670) VASQUEZ [facility], [address]: Practice Physician/Techni sincere ID = [id number] for BENY SOLER [id number] 00:01:00 Test Item Value Reference Range Interpretation Comments Phosphorus (test code 2.7 mg/dL 2.3-4.7 Specim en = 2777-1) slightly hemolyzed MAVERICK (test code = MAVERICK) Practice Physician ID - DB Lab Interpretation Normal (test code = 46770-3) [id number] Test Item Value Reference Range Interpretation Comments MAGNESIUM (BEAKER) 2.8 mg/dL 1.6-2.6 H Specimen slightly (test code = 627) hemolyzed Practice Physician ID - [id number] 00:01:00 Test Item Value Reference Range Interpretation Comments PHOSPHORUS (BEAKER) 2.7 mg/dL 2.3-4.7 Specimen slightly (test code = 604) hemolyzed Practice Physician ID - DBBASIC METABOLIC [id number] 00:01:00 Test Item Value Reference Range Interpretation Comments SODIUM (BEAKER) 136 meq/L 136-145 (test code = 381) POTASSIUM (BEAKER) 4.2 meq/L 3.5-5.1 Specimen slightly (test code = 379) hemolyzed CHLORIDE (BEAKER) 104 meq/L 98-107 (test code = 382) CO2 (BEAKER) (test 21 meq/L 22-29 L code = 355) BLOOD UREA NITROGEN 5 mg/dL 7-21 L (BEAKER) (test code = 354) CREATININE (BEAKER) 0.76 mg/dL 0.57-1.25 Specimen slightly (test code = 358) hemolyzed GLUCOSE RANDOM 125 mg/dL 70-105 H (BEAKER) (test code = 652) CALCIUM (BEAKER) 8.7 mg/dL 8.4-10.2 (test code = 697) EGFR (BEAKER) (test 93 mL/min/1.73 ESTIMA GUILLERMO GFR IS code = 1092) sq m NOT ACCURATE CREATININE CLEARANCE IN PREDICTING GLOMERULAR FILTRATION RATE . ESTIMATED GFR I S NOT APPLICABLE FOR DIALYSIS PATIEN TS. Practice Physician ID - DBBLOOD GAS, [id number] 23:45:00 Test Item Value Reference Range Interpretation Comments PH VENOUS (BEAKER) (test code = 7.40 7.32-7.42 701) PCO2 VENOUS (BEAKER) (test code = 38 mmHg 41-51 L 755) PO2 VENOUS (BEAKER) (test code = 73 mmHg 25-40 H 702) O2 SATURATION VENOUS (BEAKER) 94.6 % 40.0-70.0 H (test code = 703) HCO3 VENOUS (BEAKER) (test code = 23 mmol/L 21-29 705) BASE EXCESS VENOUS (BEAKER) (test -1.3 mmol/L -2.0-3.0 code = 704) PATIENT TEMPERATURE (BEAKER) 37.1 C (test code = 1818) FIO2 (BEAKER) (test code = 1819) 28.0 % POCT-GLUCOSE [id number] 23:38:00 Test Item Value Reference Range Interpretation Comments POC-GLUCOSE METER 128 mg/dL 70-110 H : TESTED A T [facility] 6720 (BEAKER) (test code = [place], 1538) [address]: Practice Physician/Techni sincere ID = [id number] for CH U, LI [id number] 21:41:00 Test Item Value Reference Range Interpretation Comments MAGNESIUM (BEAKER) (test code = 1.6 mg/dL 1.6-2.6 627) Practice Physician ID - DBUrinalysis w/Microscopic + Reflex to [id number] 21:29:00 Test Item Value Reference Range Interpretation Comments Color, UA (test code = Yellow 5778-6) Clarity, UA (test code = Clear 5767-9) Specific [place], UA (test 1.017 1.001-1.035 code = 5811-5) pH, UA (test code = 6.5 5.0-8.0 5803-2) Protein, UA (test code = Negative Negative 01623-5) Glucose, UA (test code = Negative Negative 365) Ketones, UA (test code = Negative Negative 2514-8) Bilirubin, UA (test code = Negative Negative 52101-6) Blood, UA (test code = Negative Negative 92720-2) Nitrite, UA (test code = Negative Negative 5802-4) Leukocytes, UA (test code Moderate Negative A = 5799-2) Urobilinogen, UA (test 0.2 mg/dL 0.2-1 code = 05430-1) RBC, UA (test code = 2 /HPF 74031-7) WBC, UA (test code = 15 /HPF 5821-4) Mucus (test code = 8247-9) Rare Squam Epithel, UA (test <1 /HPF code = 30946-3) Specimen Source (test code = 2795) MAVERICK (test code = MAVERICK) Practice Physician ID - [auto]Practice Physician ID - lanny Lab Interpretation (test Abnormal code = 98205-5) [facility] UR[facility] [id number] 21:29:00 Test Item Value Reference Range Interpretation Comments COLOR (BEAKER) (test code = 470) Yellow CLARITY (BEAKER) (test code = 469) Clear SPECIFIC GRAVITY UA (BEAKER) (test 1.017 1.001-1.035 code = 468) PH UA (BEAKER) (test code = 467) 6.5 5.0-8.0 PROTEIN UA (BEAKER) (test code = Negative Negative 464) GLUCOSE UA (BEAKER) (test code = Negative Negative 365) KETONES UA (BEAKER) (test code = Negative Negative 371) BILIRUBIN UA (BEAKER) (test code = Negative Negative 462) BLOOD UA (BEAKER) (test code = 461) Negative Negative NITRITE UA (BEAKER) (test code = Negative Negative 465) LEUKOCYTE ESTERASE UA (BEAKER) Moderate Negative A (test code = 466) UROBILINOGEN UA (BEAKER) (test code 0.2 mg/dL 0.2-1.0 = 463) RBC UA (BEAKER) (test code = 519) 2 /HPF WBC UA (BEAKER) (test code = 520) 15 /HPF MUCUS (BEAKER) (test code = 1574) Rare SQUAMOUS EPITHELIAL (BEAKER) (test < /HPF code = 516) SOURCE(BEAKER) (test code = 2795) Practice Physician ID - [auto]Practice Physician ID - hankSalicylate [id number] 20:57:00 Test Item Value Reference Range Interpretation Comments Salicylate Lvl (test <5.0 15-30 L code = 4024-6) MAVERICK (test code = MAVERICK) Therapeutic Range: 15.0-30.0 mg/dLToxic: >30.0 mg/dL Lethal: >70.0 mg/dL Practice Physician ID - BS Lab Interpretation (test Abnormal code = 05819-1) [facility] [id number] 20:57:00 Test Item Value Reference Range Interpretation Comments SALICYLATE LEVEL (BEAKER) (test code < mg/dL 15.0-30.0 L = 764) Therapeutic Range: 15.0-30.0 mg/dLToxic: >30.0 mg/dL Lethal: >70.0 mg/dLOperator ID - BSCreatine Kinase (CK)2019-07-05 20:41:00 Test Item Value Reference Range Interpretation Comments Total CK (test code = 25 U/L 29-200 L 2157-6) MAVERICK (test code = MAVERICK) Practice Physician ID - BS Lab Interpretation (test Abnormal code = 30311-4) [facility] (CK)2019-07-05 20:41:00 Test Item Value Reference Range Interpretation Comments CREATINE KINASE TOTAL (BEAKER) (test 25 U/L 29-200 L code = 380) Practice Physician ID - BSCT, BRAIN, WITHOUT [id number] 20:32:00FINAL REPORT CT, BRAIN, WITHOUT CONTRAST INDICATION: Cerebral edema TECHNIQUE: Noncontrast axial imaging was obtained from the vertex to the skull base. Axial images were reconstructed using a bone algorithm. DOSE REDUCTION: Dose modulation, iterative reconstruction, and/or weight-based adjustment of the mA/kV was utilized to reduce the radiation dose to as low as reasonably ach ievable. COMPARISON: None. FINDINGS: Intracranial: No intracranial hemorrhage or abnormal extra-axial collection. No evidence of acute territorial infarct. No mass effect. No hydrocephalus. Osseousstructures: No fracture. No suspicious lesion. Paranasal sinuses and mastoid air cells: Marked mucosal thickening in the bilateral maxillary sinuses, right sphenoid sinus, and scattered opacification of the ethmoid air cells. Mastoids are clear. Orbital contents: Globes are intact. IMPRESSION: No acute intracranial hemorrhage, territorial infarct, or mass effect. If there is persistent clinical concern for intracranial pathology, MR examination is recommended for further characterization. Signed: Chandu Dale MDRepjoe Verified Date/Time: 07/05/2019 20:32:55 CT brain without IV [id number] 20:32:00Interface, External Ris In - 07/05/2019 8:[address], BRAIN, WITHOUT CONTRAST INDICATION: Cerebral edema TECHNIQUE: Noncontrast axial imaging was obtained from thevertex to the skull base. Axial images were reconstructed using a bone algorithm. DOSE REDUCTION: Dose modulation, iterative reconstruction, and/or weight-based adjustment of the mA/kV was utilized to r educe the radiation dose to as low as reasonably achievable. COMPARISON: None. FINDINGS: Intracranial: No intracranial hemorrhage or abnormal extra-axial collection. No evidence of acute territorial infarct. No mass effect. No hydrocephalus. Osseous structures: No fracture. No suspicious lesion. Paranasal sinuses and mastoid air cells: Marked mucosal thickening in the bilateral maxillary sinuses,right sphenoid sinus, and scattered opacification of the ethmoid air cells. Mastoids are clear. Orbital contents: Globes are intact. IMPRESSION: No acute intracranial hemorrhage, territorial infarct, or mass effect. If there is persistent clinical concern for intracranial pathology, MR examination is recommended for further characterization. Signed: Chandu Dale Verified Date/Time: 07/05/2019 20:32:55 [facility] POCT-GLUCOSE [id number] 19:49:00 Test Item Value Reference Range Interpretation Comments POC-GLUCOSE METER 127 mg/dL 70-110 H : TESTED A T [facility] 6720 (BEAKER) (test code = LARS Garvin [facility], 1538) [address]: Practice Physician/Techni sincere ID = [id number] for ROBIN MEJIAS Manual [id number] 19:33:00 Test Item Value Reference Range Interpretation Comments % Neutros (test code = 88 % 2816) % Lymphs (test code = 1 % 2817) % Monos (test code = 1 % 2818) % Bands (test code = 10 % 0-10 6) # Neutros (test code = 25.43 K/ul 1.56-6.13 H 2830) # Lymphs (test code = 0.29 K/ul 1.18-3.74 L 2831) # Monos (test code = 0.29 K/uL 0.24-0.36 2832) # Bands (test code = 2.89 K/uL 0-0.8 H 2840) Total Counted (test 100 code = 1351) Giant Platelet (test Present code = 313) Vacuolated Neutrophils Present (test code = 483) Polychromasia (test 1+ few code = 478) Anisocytosis (test code 2+ moderate = 961) Microcytes (test code = 2+ moderate 965) Platelet Conc (test Adequate code = 3438) MAVERICK (test code = MAVERICK) Practice Physician ID - Marcus comments: Slide comments: Lab Interpretation Abnormal (test code = 83921-8) [facility](CELLAVISION MANUAL DIFF)2019-07-05 19:33:00 Test Item Value Reference Range Interpretation Comments NEUTROPHILS - REL 88 % (CELLAVISION)(BEAKER) (test code = 2816) LYMPHOCYTES - REL 1 % (CELLAVISION)(BEAKER) (test code = 2817) MONOCYTES - REL 1 % (CELLAVISION)(BEAKER) (test code = 2818) BANDS - REL (CELLAVISION)(BEAKER) 10 % 0-10 (test code = 2826) NEUTROPHILS - ABS 25.43 K/ul 1.56-6.13 H (CELLAVISION)(BEAKER) (test code = 2830) LYMPHOCYTES - ABS 0.29 K/ul 1.18-3.74 L (CELLAVISION)(BEAKER) (test code = 2831) MONOCYTES - ABS 0.29 K/uL 0.24-0.36 (CELLAVISION)(BEAKER) (test code = 2832) BANDS - ABS (CELLAVISION)(BEAKER) 2.89 K/uL 0.00-0.80 H (test code = 2840) TOTAL COUNTED (BEAKER) (test code 100 = 1351) GIANT PLATELETS (BEAKER) (test Present code = 313) VACUOLATED NEUTROPHILS (BEAKER) Present (test code = 483) POLYCHROMATOPHILLIC RBCS(BEAKER) 1+ few (test code = 478) ANISOCYTOSIS (BEAKER) (test code 2+ moderate = 961) MICROCYTES (BEAKER) (test code = 2+ moderate 965) PLATELET CONCENTRATION Adequate (CELLAVISION)(BEAKER) (test code = 3438) Practice Physician ID - Marcus comments: Slide comments:TSH/Free T4 If Indicated 2019-07-05 19:25:00 Test Item Value Reference Range Interpretation Comments TSH (test code = 40022-4) 0.93 0.35- 4.94 uIU/mL MAVERICK (test code = MAVERICK) Practice Physician ID - BS Lab Interpretation (test Normal code = 32957-1) [facility] [id number] 19:25:00 Test Item Value Reference Range Interpretation Comments THYROID STIMULATING HORMONE 0.93 uIU/mL 0.35-4.94 (BEAKER) (test code = 772) Practice Physician ID - [id number] 19:21:00 Test Item Value Reference Range Interpretation Comments Cortisol, Total (test code = 30.2 ug/dL 3.7-19.4 H 2755) MAVERICK (test code = MAVERICK) Practice Physician ID - BS Lab Interpretation (test Abnormal code = 12532-7) [facility] Test Item Value Reference Range Interpretation Comments CORTISOL, TOTAL (BEAKER) (test 30.2 ug/dL 3.7-19.4 H code = 2755) Practice Physician ID - BSRAD, CHEST, 1 VIEW, NON [id number] 19:16:00Post- intubationReason for exam:->intuabtedShould this be performed at the bedside?->YesFINAL REPORT Chest dated 07/05/2019 Clinical Information: intuabted Comment: Heart is normal in size. Pulmonary vasculature is indistinct. Interstitial disease is seen bilaterally suggestive of vascular congestion. No pleural effusion or pneumothorax is seen. Endotracheal tube and nasogastric tube are noted. Signed: Shereen Laughlineport Verified Date/Time: 07/05/2019 19:16:11 Reading Location: [facility] [id number] Consult Reading Room Electronically signed by: SHEREEN LAUGHLIN M.D.on 07/05/2019 07:16 PMAcetaminophen [id number] 19:05:00 Test Item Value Reference Range Interpretation Comments Acetaminophen Level <5.7 10-30 L (test code = 3298-7) MAVERICK (test code = MAVERICK) Therapeutic Range: 10.0-30.0 g/mLToxic Levels: >200.0 g/mL Practice Physician ID - BS Lab Interpretation (test Abnormal code = 87820-8) [facility] [id number] 19:05:00 Test Item Value Reference Range Interpretation Comments ACETAMINOPHEN LEVEL (BEAKER) (test < ug/mL 10.0-30.0 L code = 344) Therapeutic Range: 10.0-30.0 g/mLToxic Levels: >200.0 g/mLOperator ID - [id number] 19:04:00 Test Item Value Reference Range Interpretation Comments Lipase (test code = 3040-3) <4 8-78 L MAVERICK (test code = MAVERICK) Practice Physician ID - BS Lab Interpretation (test Abnormal code = 58065-1) [facility] 19:04:00 Test Item Value Reference Range Interpretation Comments LIPASE (BEAKER) (test code = 749) < U/L 8-78 L Practice Physician ID - [id number] 19:03:00 Test Item Value Reference Range Interpretation Comments Ethanol Lvl (test code = <10 <=10 mg/dL 5643-2) MAVERICK (test code = MAVERICK) Practice Physician ID - DB Lab Interpretation (test Normal code = 42917-2) [facility]ETH[facility] 19:03:00 Test Item Value Reference Range Interpretation Comments ETHANOL (BEAKER) (test code = 400) < mg/dL <=10 Practice Physician ID - DBComprehensive metabolic [id number] 19:01:00 Test Item Value Reference Range Interpretation Comments Protein, Total (test 7.5 6.0- 8.3 gm/dL code = 2885-2) Albumin (test code = 4.4 g/dL 3.5-5 41705-6) Alkaline Phosphatase 112 U/L 40-150 (test code = 6768-6) Total Bilirubin (test 0.6 mg/dL 0.2-1.2 code = 1975-2) Sodium (test code = 139 meq/L 316-307 2192-2) Potassium (test code = 4.4 meq/L 3.5-5.1 2823-3) Chloride (test code = 105 meq/L 98-107 2075-0) CO2 (test code = 25 meq/L 22-29 2028-9) BUN (test code = 6 mg/dL 7-21 L 3094-0) Creatinine (test code 0.84 mg/dL 0.57-1.25 = 2160-0) Glucose (test code = 119 mg/dL 70-105 H 2345-7) Calcium (test code = 8.4 mg/dL 8.4-10.2 24689-7) AST (test code = 22 U/L 5-34 1920-8) ALT (test code = 17 U/L 6-55 1742-6) EGFR (test code = 83 mL/min/1.73 sq [place] [address]-4) NOT ACCURATE CREATININE CLEARANCE IN PREDICTING GLOMERULAR FILTRATION RATE . ESTIMATED GFR I S NOT APPLICABLE FOR DIALYSIS PATIENTS. MAVERICK (test code = MAVERICK) Practice Physician ID - BS Lab Interpretation Abnormal (test code = 72491-4) [facility] HospitalAmylase[facility] 19:01:00 Test Item Value Reference Range Interpretation Comments Amylase (test code = 1798-8) 74 U/L 25-125 MAVERICK (test code = MAVERICK) Practice Physician ID - BS Lab Interpretation (test Normal code = 49221-1) [facility]UM2020-[facility]-30 19:01:00 Test Item Value Reference Range Interpretation Comments MAGNESIUM (BEAKER) (test code = 1.5 mg/dL 1.6-2.6 L 627) Practice Physician ID - BSCOMPREHENSIVE METABOLIC [id number] 19:01:00 Test Item Value Reference Range Interpretation Comments TOTAL PROTEIN 7.5 gm/dL 6.0-8.3 (BEAKER) (test code = 770) ALBUMIN (BEAKER) 4.4 g/dL 3.5-5.0 (test code = 1145) ALKALINE PHOSPHATASE 112 U/L 40-150 (BEAKER) (test code = 346) BILIRUBIN TOTAL 0.6 mg/dL 0.2-1.2 (BEAKER) (test code = 377) SODIUM (BEAKER) (test 139 meq/L 136-145 code = 381) POTASSIUM (BEAKER) 4.4 meq/L 3.5-5.1 (test code = 379) CHLORIDE (BEAKER) 105 meq/L 98-107 (test code = 382) CO2 (BEAKER) (test 25 meq/L 22-29 code = 355) BLOOD UREA NITROGEN 6 mg/dL 7-21 L (BEAKER) (test code = 354) CREATININE (BEAKER) 0.84 mg/dL 0.57-1.25 (test code = 358) GLUCOSE RANDOM 119 mg/dL 70-105 H (BEAKER) (test code = 652) CALCIUM (BEAKER) 8.4 mg/dL 8.4-10.2 (test code = 697) AST (SGOT) (BEAKER) 22 U/L 5-34 (test code = 353) ALT (SGPT) (BEAKER) 17 U/L 6-55 (test code = 347) EGFR (BEAKER) (test 83 mL/min/1.73 ESTIMA GUILLERMO GFR IS code = 1092) sq m NOT ACCURATE CREATININE CLEARANCE IN PREDICTING GLOMERULAR FILTRATION RATE . ESTIMATED GFR I S NOT APPLICABLE FOR DIALYSIS PATIEN TS. Practice Physician ID - [id number] 19:01:00 Test Item Value Reference Range Interpretation Comments AMYLASE (BEAKER) (test code = 349) 74 U/L 25-125 Practice Physician ID - [id number] 18:53:00 Test Item Value Reference Range Interpretation Comments Fibrinogen (test code = 3255-7) 417 mg/dl 225-434 Lab Interpretation (test code = Normal 53276-7) [facility]FIBRINOGEN2020-01-30 18:53:00 Test Item Value Reference Range Interpretation Comments FIBRINOGEN LEVEL (BEAKER) (test 417 mg/dl 225-434 code = 658) Blood gas, [id number] 18:50:00 Test Item Value Reference Range Interpretation Comments pH, Arterial (test code = 2744-1) 7.34 7.35-7.45 L pCO2, Arterial (test code = 46 35- 45 mmHg H 2019-01) pO2, Arterial (test code = 147 80- 90 mmHg H 2702-7) O2 Sat, Arterial (test code = 98.7 % 96-97 H 2707-6) HCO3, Arterial (test code = 24 mmol/L 21-29 1960-4) Base Excess, Arterial (test code -2.1 mmol/L -2-3 L = 1925-7) Patient Temperature (test code = 37.5 C 8310-5) FIO2 (test code = 1819) 40 % Lab Interpretation (test code = Abnormal 75157-2) [facility] HospitalBLOOD GAS, [id number] 18:50:00 Test Item Value Reference Range Interpretation Comments PH ARTERIAL (BEAKER) (test code = 7.34 7.35-7.45 L 383) PCO2 ARTERIAL (BEAKER) (test code 46 mmHg 35-45 H = 384) PO2 ARTERIAL (BEAKER) (test code 147 mmHg 80-90 H = 385) O2 SATURATION ARTERIAL (BEAKER) 98.7 % 96.0-97.0 H (test code = 386) HCO3 ARTERIAL (BEAKER) (test code 24 mmol/L -29 = 388) BASE EXCESS ARTERIAL (BEAKER) -2.1 mmol/L -2.0-3.0 L (test code = 387) PATIENT TEMPERATURE (BEAKER) 37.5 C (test code = 1818) FIO2 (BEAKER) (test code = 1819) 40.0 % [id number] 18:48:00 Test Item Value Reference Range Interpretation Comments PTT (test code = 49071-2) 28.1 22.5- 36.0 seconds Lab Interpretation (test code = Normal 19162-5) [facility] HospitalCBC W/PLT COUNT & AUTO [id number] 18:48:00 Test Item Value Reference Range Interpretation Comments WHITE BLOOD CELL COUNT (BEAKER) 28.9 K/ L 3.5-10.5 H (test code = 775) RED BLOOD CELL COUNT (BEAKER) 4.72 M/ L 3.93-5.22 (test code = 761) HEMOGLOBIN (BEAKER) (test code = 13.3 GM/DL 11.2-15.7 410) HEMATOCRIT (BEAKER) (test code = 40.9 % 34.1-44.9 411) MEAN CORPUSCULAR VOLUME (BEAKER) 86.7 fL 79.4-94.8 (test code = 753) MEAN CORPUSCULAR HEMOGLOBIN 28.2 pg 25.6-32.2 (BEAKER) (test code = 751) MEAN CORPUSCULAR HEMOGLOBIN CONC 32.5 GM/DL 32.2-35.5 (BEAKER) (test code = 752) RED CELL DISTRIBUTION WIDTH 13.6 % 11.7-14.4 (BEAKER) (test code = 412) PLATELET COUNT (BEAKER) (test 300 K/CU MM 150-450 code = 756) MEAN PLATELET VOLUME (BEAKER) 10.7 fL 9.4-12.3 (test code = 754) NUCLEATED RED BLOOD CELLS 0 /100 WBC 0-0 (BEAKER) (test code = 413) NEUTROPHILS RELATIVE PERCENT 96 % (BEAKER) (test code = 429) LYMPHOCYTES RELATIVE PERCENT 2 % (BEAKER) (test code = 430) MONOCYTES RELATIVE PERCENT 2 % (BEAKER) (test code = 431) EOSINOPHILS RELATIVE PERCENT 0 % (BEAKER) (test code = 432) BASOPHILS RELATIVE PERCENT 0 % (BEAKER) (test code = 437) NEUTROPHILS ABSOLUTE COUNT 27.70 K/ L 1.56-6.13 H (BEAKER) (test code = 670) LYMPHOCYTES ABSOLUTE COUNT 0.47 K/ L 1.18-3.74 L (BEAKER) (test code = 414) MONOCYTES ABSOLUTE COUNT (BEAKER) 0.46 K/ L 0.24-0.36 H (test code = 415) EOSINOPHILS ABSOLUTE COUNT 0.00 K/ L 0.04-0.36 L (BEAKER) (test code = 416) BASOPHILS ABSOLUTE COUNT (BEAKER) 0.05 K/ L 0.01-0.08 (test code = 417) IMMATURE GRANULOCYTES-RELATIVE 1 % 0-1 PERCENT (BEAKER) (test code = 2801) [id number] 18:48:00 Test Item Value Reference Range Interpretation Comments PARTIAL THROMBOPLASTIN TIME 28.1 seconds 22.5-36.0 (BEAKER) (test code = 760) Prothrombin time/[id number] 18:47:00 Test Item Value Reference Range Interpretation Comments Protime (test code = 12.9 11.9- 14.2 5902-2) seconds INR (test code = 1.0 <=5.9 6301-6) MAVERICK (test code = MAVERICK) Effective 11/01/2018: PT Reference Range ChangeNew: 11.9-14.2 Previous: 11.7-14.7 RECOMMENDED COUMADIN/WARFARIN INR THERAPY RANGESSTANDARD DOSE: 2.0-3.0 Includes: PROPHYLAXIS for venous thrombosis, systemic embolization; TREATMENT for venous thrombosis and/or pulmonary embolus.HIGH RISK: Target INR is 2.5-3.5 for patients wiht mechanical heart valves. Lab Interpretation Normal (test code = 56046-3) [facility] HospitalPROTHROMBIN TIME/[id number] 18:47:00 Test Item Value Reference Range Interpretation Comments PROTIME (BEAKER) (test code = 12.9 seconds 11.9-14.2 759) INR (BEAKER) (test code = 370) 1.0 <=5.9 Effective 11/01/2018: PT Reference Range ChangeNew: 11.9-14.2 Previous: 11.7- 14.7RECOMMENDED COUMADIN/WARFARIN INR THERAPY RANGESSTANDARD DOSE: 2.0-3.0 Includes: PROPHYLAXIS for venous thrombosis, systemic embolization; TREATMENT for venous thrombosis and/or pulmonary embolus.HIGH RISK: Target INR is2.5-3.5 for patients wiht mechanical heart valves. Screen, [id number] 18:42:00 Test Item Value Reference Range Interpretation Comments Preg Test, Ur (test code = 2112-1) Negative [facility] HospitalPREGNANCY SCREEN, [id number] 18:42:00 Test Item Value Reference Range Interpretation Comments TEST URINE (BEAKER) (test Negative code = 583)
--- NOTE | 2020-03-06 07:22 | ER ---
Nurse's Notes [facility] Name: Mikaela Vincent Age: 24 yrs Sex: Female : 1995 Arrival Date: 03/06/2020 Time: 06:57 Bed 6 Private MD: Diagnosis: Foreign body in ear-right: resolved Presentation: 03/06 07:10 Chief complaint: Patient states: woke up and felt like something was stuck in her right iw ear, thinks it could be the back of her piercing. Coronavirus screen: At this time, the client does not indicate any symptoms associated with coronavirus-19. Ebola Screen: Patient negative for fever greater than or equal to 101.5 degrees Fahrenheit, and additional compatible Ebola Virus Disease symptoms Patient denies exposure to infectious person. Patient denies travel to an Ebola-affected area in the 21 days before illness onset. No symptoms or risks identified at this time. Initial Sepsis Screen: Does the patient meet any 2 criteria? No. Patient's initial sepsis screen is negative. Does the patient have a suspected source of infection? No. Patient's initial sepsis screen is negative. Risk Assessment: Do you want to hurt yourself or someone else? Patient reports no desire to harm self or others. Onset of symptoms was March 06, 2020. 07:10 Method Of Arrival: Ambulatory iw 07:10 Acuity: SERGO 4 iw Historical: - Allergies: 07:14 No Known Allergies; iw - Home Meds: 07:14 Lamictal 150 mg Oral tab 1 tab 2 times per day [Active]; Latuda 80 mg oral tab 1 tab iw once daily [Active]; trazodone 100 mg Oral tab nightly [Active]; Singulair 10 mg Oral tab 1 tab once daily [Active]; Nexium 40 mg Oral cpDR 1 cap once daily [Active]; Lexapro 10 mg Oral tab 1 tab once daily [Active]; Lunesta 3 mg oral tab 1 tab once daily [Active]; Adderall XR 20 mg Oral cp24 1 cap once daily [Active]; Wellbutrin XL 300 mg Oral Tb24 1 tab once daily for Major Depressive Disorder [Active]; - PMHx: 07:14 Depression; Bipolar disorder; iw - PSHx: 07:14 None; iw - Immunization history:: Adult Immunizations up to date. - Social history:: Smoking status: Patient denies any tobacco usage or history of. Screenin:14 Abuse screen: Denies threats or abuse. Nutritional screening: No deficits noted. em Tuberculosis screening: No symptoms or risk factors identified. Fall Risk None identified. Assessment: 07:14 General: Appears in no apparent distress. comfortable, Behavior is calm, cooperative, em appropriate for age. Pain: Denies pain. Neuro: Level of Consciousness is awake, alert, obeys commands, Oriented to person, place, time, situation, Appropriate for age. Cardiovascular: Capillary refill < 3 seconds Patient's skin is warm and dry. Respiratory: Airway is patent Respiratory effort is even, unlabored, Respiratory pattern is regular, symmetrical. EENT: Tympanic membrane clear on right ear Reports piece of earring in the right ear. Derm: Skin is intact, is healthy with good turgor, Skin is pink, warm \T\ dry. Musculoskeletal: Capillary refill < 3 seconds, Range of motion: intact in all extremities. Vital Signs: 07:10 BP 120 / 92; Pulse 87; Resp 16; Temp 98.0; Pulse Ox 100% on R/A; Pain 0/10; iw ED Course: 06:57 Patient arrived in ED. cl3 07:05 Andrea Tello, RN is Primary Nurse. em 07:10 Tristen Bermeo MD is Attending Physician. kdr 07:11 Triage completed. iw 07:14 Patient has correct armband on for positive identification. Bed in low position. Call em light in reach. Pulse ox on. NIBP on. 07:30 No provider procedures requiring assistance completed. Patient did not have IV access em during this emergency room visit. Administered Medications: No medications were administered Outcome: 07:21 Discharge ordered by . kdr 07:30 Medical screen evaluation completed per provider. Patient declined treatment. em 07:30 Condition: good 07:30 Following a medical screening exam, the patient was provided information regarding alternative care sites and resources available per registration personnel. 07:35 Patient left the ED. em Signatures: Tristen Bermeo MD MD kdr Andrea Tello, RN RN em Sierra Tong RN RN iw Ofelia Shin cl3
--- NOTE | 2020-03-06 07:22 | EDPHYS ---
Physician Documentation [facility] Name: Mikaela Vincent Age: 24 yrs Sex: Female : 1995 Arrival Date: 03/06/2020 Time: 06:57 Bed 6 Private MD: ED Physician Tristen Bermeo HPI: 03/06 07:24 This 24 yrs old Female presents to ER via Ambulatory with complaints of kdr Foreign Body In Ear. 07:24 The patient presents with a foreign body sensation. The complaints affect the right kdr ear. Onset: The symptoms/episode began/occurred this morning. Modifying factors: The symptoms are alleviated by nothing, the symptoms are aggravated by nothing. Associated signs and symptoms: The patient has no apparent associated signs or symptoms. Severity of symptoms: At their worst the symptoms were very mild in the emergency department the symptoms are unchanged. The patient has not experienced similar symptoms in the past. The patient has not recently seen a physician. Historical: - Allergies: 07:14 No Known Allergies; iw - Home Meds: 07:14 Lamictal 150 mg Oral tab 1 tab 2 times per day [Active]; Latuda 80 mg oral tab 1 tab iw once daily [Active]; trazodone 100 mg Oral tab nightly [Active]; Singulair 10 mg Oral tab 1 tab once daily [Active]; Nexium 40 mg Oral cpDR 1 cap once daily [Active]; Lexapro 10 mg Oral tab 1 tab once daily [Active]; Lunesta 3 mg oral tab 1 tab once daily [Active]; Adderall XR 20 mg Oral cp24 1 cap once daily [Active]; Wellbutrin XL 300 mg Oral Tb24 1 tab once daily for Major Depressive Disorder [Active]; - PMHx: 07:14 Depression; Bipolar disorder; iw - PSHx: 07:14 None; iw - Immunization history:: Adult Immunizations up to date. - Social history:: Smoking status: Patient denies any tobacco usage or history of. ROS: 07:24 Constitutional: Negative for fever, chills, and weight loss, Eyes: Negative for injury, kdr pain, redness, and discharge, Neck: Negative for injury, pain, and swelling. 07:24 ENT: Positive for foreign body sensation, Negative for drainage from ear(s), ear pain, Gum pain hearing loss. Exam: 07:24 Constitutional: This is a well developed, well nourished patient who is awake, alert, kdr and in no acute distress. 07:24 ENT: Ear canal(s): are normal, clear, foreign body, is not appreciated, in the right external ear canal, TM's: are normal, no acute changes, Examination of the other ear shows no obvious abnormality. Vital Signs: 07:10 BP 120 / 92; Pulse 87; Resp 16; Temp 98.0; Pulse Ox 100% on R/A; Pain 0/10; iw MDM: 07:21 Patient medically screened. kdr 07:24 Data reviewed: vital signs, nurses notes. Counseling: I had a detailed discussion with kdr the patient and/or guardian regarding: the historical points, exam findings, and any diagnostic results supporting the discharge/admit diagnosis, the need for outpatient follow up. Administered Medications: No medications were administered Disposition: 07:23 Right ear foreign body sensation. kdr Disposition: 03/06/20 07:21 Discharged to Home. Impression: Foreign body in ear - right: resolved. - Condition is Stable. - Discharge Instructions: Ear Foreign Body, [id number]. - Medication Reconciliation Form, Thank You Letter form. - Follow up: Private Physician; When: 2 - 3 days; Reason: If symptoms return, Further diagnostic work-up, Recheck today's complaints, Continuance of care, Re-evaluation by your physician. - Problem is new. - Symptoms are resolved. Signatures: Tristen Bermeo MD MD [facility] Andrea Tello RN RN em Sierra Tong RN RN Corrections: (The following items were deleted from the chart) 07:35 07:21 03/06/2020 07:21 Discharged to Home. Impression: Foreign body in ear - right: em resolved. Condition is Stable. Forms are Medication Reconciliation Form, Thank You Letter, Antibiotic Education, Prescription Opioid Use. Follow up: Private Physician; When: 2 - 3 days; Reason: If symptoms return, Further diagnostic work-up, Recheck today's complaints, Continuance of care, Re-evaluation by your physician. Problem is new. Symptoms are resolved. kdr
[2020-03-06 07:40] VITALS: BP 120/92; TEMP 98; O2SAT 100
== END 2020-03-06 07:35 | disposition home or self-care (01) ==
LOC: ER 06:56
DX: T16.1XXA Foreign body in right ear, initial encounter (principal); F31.9 Bipolar disorder, unspecified
CPT/HCPCS: 99282

== ENCOUNTER 2021-03-09 10:05 | Day surgery (SDC) | payer BC, OTHER ==
[2021-03-06 11:36] LABS: Absolute Lymphocytes (CBC) 3.4 K/uL (0.7-4.9); Basophils % 0.9 % (0-1.3); Hematocrit 39.6 % (36.0-45.0); Lymphocytes % 37.7 % (15.3-44.8); MPV 8.5 fL (7.6-11.3); RBC Red Blood Cell Count 4.91 M/uL (3.86-4.86)
[2021-03-06 11:54] LABS: Albumin 3.6 g/dL (3.4-5.0); Bilirubin Direct 0.1 mg/dL (0-0.2); Bilirubin Total 0.4 mg/dL (0.2-1.0); Potassium 3.6 mmol/L (3.5-5.1)
[2021-03-09 10:25] LABS: Specific Gravity >= 1.030 (1.005-1.030)
[2021-03-09] MEDS: Ringers Lactate 1,000 ML IV ONE ×2 (10:30→12:38)
[2021-03-09] MEDS ORDERED: CEFOXITIN/NS 1gm 1 GM/50 ML BAG ONE (10:59)
[2021-03-09] MEDS ORDERED: CELECOXIB 100 MG CAPSULE ONE (11:16)
[2021-03-09] MEDS ORDERED: ONDANSETRON 4 MG/2 ML VIAL ONE ×2 (11:17→12:52)
[2021-03-09] MEDS ORDERED: HYDROCODONE/APAP 5/325 MG TAB ONE (11:17)
[2021-03-09] MEDS ORDERED: ACETAMINOPHEN 500 MG TAB ONE (11:17)
[2021-03-09] MEDS ORDERED: FENTANYL CITR 100 MCG/2 ML ONE ×2 (12:51→13:28)
[2021-03-09] MEDS ORDERED: MIDAZOLAM HCL 2 MG/2 ML INJ ONE (12:51)
[2021-03-09] MEDS ORDERED: dexAMETHasone 10 MG/ML VIAL ONE (12:51)
[2021-03-09] MEDS ORDERED: propofoL 200 MG/20 ML VIAL IV ONE (12:51)
[2021-03-09] MEDS ORDERED: LIDOCAINE 2% MPF 5 ML VIAL ONE (12:53)
[2021-03-09] MEDS ORDERED: ROCURONIUM 50 MG/5 ML VIAL IV ONE (12:53)
[2021-03-09] MEDS ORDERED: LABETALOL 20 MG/4ML SYRINGE IV ONE ×2 (13:41→13:43)
[2021-03-09] MEDS ORDERED: GLYCOPYRROLATE 0.2 MG/ML SYR ONE ×2 (13:53→14:00)
[2021-03-09] MEDS ORDERED: KETOROLAC 30 MG/ML INJ ONE (13:53)
[2021-03-09] MEDS ORDERED: NEOSTIGMINE 1 MG/ML -5 ML ONE (13:53)
[2021-03-09] MEDS ORDERED: MORPHINE 10 MG/ML VIAL ONE (14:04)
[2021-03-09] MEDS ORDERED: Mastisol Adhesive Liq ONE (14:05)
[2021-03-09] MEDS ORDERED: NA CHLORIDE 0.9% 1,000 ML ONE (14:21)
[2021-03-09] MEDS ORDERED: HYDROCODONE/APAP 7.5/325 MG TAB ONE ×2 (15:17→15:52)
--- NOTE | 2021-03-09 15:47 | OP ---
Date of Procedure: 03/09/2021 Surgeon: Aneudy Neville MD Bike Technician: SHANEKA Son. Preoperative Diagnosis: Acute and chronic cholecystitis and cholelithiasis. Postoperative Diagnosis: Acute and chronic cholecystitis and cholelithiasis. Procedure Performed: Laparoscopic cholecystectomy. Estimated Blood Loss: Minimal. Specimen: Gallbladder. Findings: As above. Anesthesia: General. Complications: None. Disposition: The patient tolerated the procedure in stable condition and taken to Recovery in good g eneral condition. Procedure In Detail: The patient was brought to the OR and placed in supine position. General anest hesia begun. The patient was prepped and draped in usual sterile fashion. Marcaine 0.5% was infiltr ated locally. A 15-blade was used to make a 1 cm supraumbilical midline incision. Subcutaneous tiss ues divided. Fascia identified and divided. A #1 Vicryl stay suture was placed. Peritoneal cavity was entered with blunt dissection. A 12 mm trocar placed into the peritoneal cavity under direct vis ion. Pneumoperitoneum was established. Then, three 5 mm trocars were placed, 1 in the epigastrium j ust to the right of midline and 2 in the right subcostal region. Laparoscopy revealed distended gall bladder, which was aspirated of clear bile consistent with cholecystitis and then the fundus was iden tified and retracted superiorly. Infundibulum was identified and retracted inferolaterally. Cystic duct and cystic artery were clearly identified with blunt dissection. Clips were placed. Both struc tures were divided. Cautery was used to remove the gallbladder from the liver bed. Bleeding on the liver bed controlled with cautery. Gallbladder retrieved through the umbilicus via an EndoCatch bag. Right upper quadrant was irrigated. Effluent was clear. No evidence of bleeding or bile leakage a ppreciated. Subsequently, all trocars were removed under direct vision. Stay sutures were tied to e ach other to approximate the fascial defect. Subcutaneous wounds irrigated. Bleeding controlled wit h cautery. A 3-0 chromic used to approximate the subcutaneous tissue and close the skin. Sterile dr essing applied. The patient was awakened and taken to Recovery in good general condition. Discharge Note: The patient will go to Day Surgery and home when stable. Disposition: Home. Condition: Stable. Discharge Instructions: Resume home medications and diet. Activity as tolerated. No heavy lifting. Remove outer dressing in 2 days. Shower. Keep Steri-Strips on at all times. Incentive spirometry as ordered. Tylenol No.3 one tablet p.o. q.4 p.r.n. pain. Follow up in my office in a week. Call for appointment. TANNER/KELLI Voice ID: [id number] Report ID: [id number]
[2021-03-09 17:48] VITALS: TEMP 97.4; O2SAT 96
[2021-03-09 17:49] VITALS: BP 130/90
== END 2021-03-09 16:22 | disposition home or self-care (01) ==
LOC: OR 10:05
PROVIDERS: ATTEND Surgery
PROC: 0FT44ZZ Resection of Gallbladder, Percutaneous Endoscopic Approach (ICD-10-PCS; principal; 2021-03-09 11:30)
DX: K80.12 Calculus of gallbladder with acute and chronic cholecystitis without obstruction (principal); Z20.822 Contact with and (suspected) exposure to COVID-19
CPT/HCPCS: 85025; 80048; 36415; 82150; 81025; 80076; 88304; 47562; U0003; J2704; J2250; J3010 ×2; J1100; J2710; J7120; J7030; J0694; J2405 ×2

== ENCOUNTER 2025-03-10 11:07 | Emergency (ER) | payer SELFPAY ==
[2025-03-10 12:07] LABS: Absolute Lymphocytes (CBC) 2.6 K/uL (0.7-4.9); Hematocrit 40.6 % (36.0-45.0); Hemoglobin 13.5 g/dL (12.0-15.0); MCH 26.1 pg (27.0-35.0); MCHC 33.3 g/dL (32.0-36.0); MCV 78.4 fL (80-100); MPV 8.7 fL (7.6-11.3); Nucleated RBC Absolute Count 0.0 (0-0); Nucleated Red Blood Cells % 0.0 % (0-0); PT Prothrombin Time 12.9 SECONDS (10-13.0); Protime INR 1.15; RBC Red Blood Cell Count 5.18 M/uL (3.86-4.86); White Blood Count 8.10 thou/uL (4.3-10.9)
--- NOTE | 2025-03-10 12:15 | RAD REPORT ---
EXAM: Chest Single View HISTORY: 29 years Female CHEST PAIN COMPARISON: 07/05/2019 FINDINGS: LUNGS/PLEURA: The lungs are clear. No pleural effusions or pneumothorax. No pulmonary edema. CARDIAC/MEDIASTINUM: The cardiac silhouette is within normal limits. UPPER ABDOMEN: No significant abnormality. BONES: No acute abnormality. LINES/TUBES/OTHER: N/A IMPRESSION: No evidence of acute cardiopulmonary disease. No significant change from prior.
[2025-03-10 12:25] LABS: ALT/SGPT 51 U/L (13-56); AST/SGOT 35 U/L (15-37); Albumin 3.7 g/dL (3.4-5.0); Albumin/Globulin Ratio 0.9 (1.1-1.8); Alkaline Phosphatase 163 U/L (45-117); Anion Gap 10.5 mEq/L (5.0-15.0); BUN Blood Urea Nitrogen 10 mg/dL (7-18); Globulin 3.9 g/dL (2.3-3.5); Glucose Level 140 mg/dL (74-106); Magnesium 1.6 mg/dL (1.6-2.4); NT PRO-BNP 37 pg/mL (<125); Potassium 3.5 mEq/L (3.5-5.1); Thyroid Stimulating Hormone 1.460 uIU/mL (0.358-3.740)
[2025-03-10 12:26] LABS: Bilirubin Indirect, Calculated 0.2 mg/dL (0.2-0.8); Troponin High Sensitivity < 3.0 pg/mL (<58.9)
[2025-03-10] MEDS ORDERED: ONDANSETRON 4 MG/2 ML VIAL ONE (12:35)
[2025-03-10] MEDS ORDERED: HYDRALAZINE HCL 20 MG/ML VIAL ONE (13:20)
[2025-03-10] MEDS ORDERED: METOCLOPRAMIDE 10 MG/2mL INJ ONE (13:54)
[2025-03-10] MEDS ORDERED: KETOROLAC 30 MG/ML INJ ONE (13:54)
[2025-03-10] MEDS ORDERED: DIPHENHYDRAMINE 50 MG/ML VIAL ONE (13:55)
--- NOTE | 2025-03-10 14:55 | ER ---
Nurse's Notes [facility] Name: Mikaela Vincent Age: 29 yrs Sex: Female : 1995 Arrival Date: 03/10/2025 Time: 11:07 Bed 2 Private MD: Diagnosis: Essential (primary) hypertension Presentation: 03/10 11:28 Coronavirus screen: At this time, the client does not indicate any symptoms associated iw with coronavirus-19. Ebola Screen: No symptoms or risks identified at this time. Initial Sepsis Screen: Does the patient meet any 2 criteria? No. Patient's initial sepsis screen is negative. Does the patient have a suspected source of infection? No. Patient's initial sepsis screen is negative. Risk Assessment: Do you want to hurt yourself or someone else? Patient reports no desire to harm self or others. 11:28 Acuity: SERGO 3 iw 11:28 Method Of Arrival: Ambulatory iw 11:28 Chief complaint: Patient states: BP has been running high, 140's over 100's , was sent iw from urgent care , has had a headache. 15:07 Onset of symptoms was March 10, 2025. cm10 EMBEDDED NURSE: 15:07 Not cm10 Historical: - Allergies: 11:30 No Known Allergies; iw - Home Meds: 11:30 HOSPITAL MEDICINE DIRECTOR Thyroid oral daily [Active]; Nexium 40 mg Oral cpDR 1 cap once daily [Active]; iw Guanfacine Oral daily [Active]; sumatriptan oral [Active]; - PMHx: 11:30 Bipolar disorder; Depression; iw 11:30 PCOS; Hypothyroidism; Migraine; iw - PSHx: 11:30 Cholecystectomy; iw - Immunization history:: Adult Immunizations up to date. - Infectious Disease History:: Denies. - Social history:: Smoking status: Reported history of juuling and/or vaping. Screenin:50 [facility] ED Fall Risk Assessment (Adult) History of falling in the last 3 months, cm10 including since admission No falls in past 3 months (0 pts) Confusion or Disorientation No (0 pts) Intoxicated or Sedated No (0 pts) Impaired Gait No (0 pts) Mobility Assist Device Used No (0 pt) Altered Elimination No (0 pt) Score/Fall Risk Level 0 - 2 = Low Risk Oriented to surroundings, Maintained a safe environment, Hourly rounding (assess needs \T\ fall precautionary measures) done. Abuse screen: Denies threats or abuse. Denies injuries from another. Nutritional screening: No deficits noted. Tuberculosis screening: No symptoms or risk factors identified. Assessment: 11:50 General: Appears in no apparent distress. comfortable, Behavior is calm, cooperative. cm10 Pain: Complains of pain in Head Pain does not radiate. Pain began 2-3 days ago. Neuro: No deficits noted. Level of Consciousness is awake, alert, obeys commands, Oriented to person, place, time, situation. Cardiovascular: Patient's skin is warm and dry. Rhythm is sinus rhythm. Respiratory: No deficits noted. Airway is patent Respiratory effort is even, unlabored, Respiratory pattern is regular, symmetrical. 14:30 Reassessment: Patient appears in no apparent distress at this time. Patient and/or cm10 family updated on plan of care and expected duration. Pain level reassessed. Patient is alert, oriented x 3, equal unlabored respirations, skin warm/dry/pink. Vital Signs: 11:28 BP 179 / 116; Pulse 87; Resp 18; Pulse Ox 99% on R/A; iw 11:28 Resp 18; Temp 98.1; Pulse Ox 98% on R/A; Weight 75.3 kg; Height 4 ft. 10 in. ; iw 11:46 BP 157 / 107; Pulse 84; Resp 16; Pulse Ox 99% on R/A; cm10 13:00 BP 166 / 117; Pulse 77; Resp 17; Pulse Ox 96% ; cm10 13:23 BP 157 / 113; Pulse 84; Resp 16; Pulse Ox 100% on R/A; cm10 14:30 BP 144 / 85; Pulse 80; Resp 17; Pulse Ox 99% on R/A; cm10 11:28 Body Mass Index 34.69 (75.30 kg, 147.32 cm) iw ED Course: 11:09 Patient arrived in ED. cj3 11:14 Jojo Dumas PA-C is PHCP. sb4 11:14 Khai Deleon MD is Attending Physician. sb4 11:28 Triage completed. iw 11:32 Arm band placed on. iw 11:34 Rachael Espinosa, LESLY is Primary Nurse. cm10 11:56 TSH Sent. cm10 11:56 Test, Serum Sent. cm10 11:56 Basic Metabolic Panel Sent. cm10 11:56 CBC with Diff Sent. cm10 11:56 LFT's Sent. cm10 11:56 Magnesium Sent. cm10 11:56 NT PRO-BNP Sent. cm10 11:56 PT-INR Sent. cm10 11:56 Troponin HS Sent. cm10 11:57 Client placed on continuous cardiac and pulse oximetry monitoring. NIBP monitoring cm10 applied. control clerk subassembly on. Warm blanket given. 11:57 Patient has correct armband on for positive identification. Bed in low position. Call cm10 light in reach. Side rails up X 1. 11:57 Initial lab(s) drawn, by me, sent to lab. EKG done, by ED staff, reviewed by Jojo Dumas PA-C. Inserted saline lock: 20 gauge in right antecubital area, using aseptic technique. Blood collected. Flushed with 10 mL NS. Patient maintains SpO2 saturation greater than 95% on room air. 12:11 XRAY Chest (1 view) In Process Unspecified. EDMS 15:06 Provided Education on: Follow-up instructions. cm10 15:06 No provider procedures requiring assistance completed. IV discontinued, intact, cm10 bleeding controlled, No redness/swelling at site. Pressure dressing applied. Administered Medications: 12:39 Drug: cloNIDine PO 0.1 mg PO once Route: PO; cm10 13:28 Follow up: Response: No adverse reaction; Blood pressure is unchanged cm10 12:39 Drug: Ondansetron IVP 4 mg IVP once; over 2 minutes Route: IVP; Site: right antecubital;cm10 13:27 Follow up: Response: No adverse reaction cm10 13:27 Drug: hydrALAZINE IVP 10 mg IVP once Route: IVP; Site: right antecubital; cm10 14:20 Follow up: Response: No adverse reaction; Blood pressure is lowered cm10 14:06 Drug: diphenhydrAMINE IVP 25 mg IVP once Route: IVP; Site: right antecubital; nh2 15:05 Follow up: Response: No adverse reaction; Pain is decreased cm10 14:07 Drug: Ketorolac IVP 15 mg IVP once Route: IVP; Site: right antecubital; nh2 15:05 Follow up: Response: No adverse reaction; Pain is decreased cm10 14:07 Drug: metoCLOPramide IVP 10 mg IVP once; over 1 to 2 minutes Route: IVP; Site: right nh2 antecubital; 15:05 Follow up: Response: No adverse reaction; Pain is decreased cm10 Medication: 11:57 VIS not applicable for this client. cm10 Outcome: 14:54 Discharge ordered by . kaley 15:06 Discharged to home ambulatory, with family, cm10 15:06 Condition: good 15:06 Discharge instructions given to patient, Instructed on discharge instructions, follow up and referral plans. medication usage, Demonstrated understanding of instructions, follow-up care, medications, Prescriptions given X 1, 15:07 Patient left the ED. cm10 Signatures: Dispatcher [employer] EDMS Sierra Tong RN RN Jojo Troncoso PA-C PAKitty sb4 Rachael Espinosa RN RN cm10 Primo Kebede Jr, RN RN [place] Analia Diaz cj3 Corrections: (The following items were deleted from the chart) 11:34 11:28 Resp 18bpm; Pulse Ox 98% RA; annabella
--- NOTE | 2025-03-10 14:55 | EDPHYS ---
Physician Documentation [facility] Name: Mikaela Vincent Age: 29 yrs Sex: Female : 1995 Arrival Date: 03/10/2025 Time: 11:07 Bed 2 Private MD: LEENA Physician Khai Deleon HPI: 03/10 11:40 This 29 yrs old Female presents to ER via Ambulatory with complaints of High Blood sb4 Pressure. 11:50 Patient states that she has been having blood pressure issues over the past year. sb4 States that she was started on spironolactone for PCOS and that has helped but is still been intermittently high. Has not been officially diagnosed with hypertension and does not take any meds specific for hypertension. Does take guanfacine for psychiatric issues but has been out of it for the past 3 days. States she checked her blood pressure this morning and it was high - 140/100 with an associated intermittent headache so she went to urgent care and they sent her here for further eval. She denies any dizziness, chest pain, shortness of breath. States that this headache has been ongoing and intermittent for the past 2 weeks does report history of migraines. 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 - Infectious Disease History:: Denies. - Social history:: Smoking status: Reported history of juuling and/or vaping. ROS: 11:50 Constitutional: Negative for fever, chills, and weight loss, sb4 11:50 Neuro: Positive for headache, 11:50 All other systems are negative, Exam: 11:50 Constitutional: This is a well developed, well nourished patient who is awake, alert, sb4 and in no acute distress. Head/Face: Normocephalic, atraumatic. Eyes: Extra-ocular motions intact. Periorbital areas with no swelling, redness, or edema. ENT: Mucous membranes moist. Cardiovascular: Regular rate and rhythm with a normal S1 and S2. Respiratory: No increased work of breathing, no retractions or nasal flaring. Abdomen/GI: Soft, non-tender, no distension. Skin: Warm, dry with normal turgor. Normal color with no rashes, no lesions, and no evidence of cellulitis. Vital Signs: 11:28 BP 179 / 116; Pulse 87; Resp 18; Pulse Ox 99% on R/A; iw 11:28 Resp 18; Temp 98.1; Pulse Ox 98% on R/A; Weight 75.3 kg; Height 4 ft. 10 in. ; iw 11:46 BP 157 / 107; Pulse 84; Resp 16; Pulse Ox 99% on R/A; cm10 13:00 BP 166 / 117; Pulse 77; Resp 17; Pulse Ox 96% ; cm10 13:23 BP 157 / 113; Pulse 84; Resp 16; Pulse Ox 100% on R/A; cm10 14:30 BP 144 / 85; Pulse 80; Resp 17; Pulse Ox 99% on R/A; cm10 11:28 Body Mass Index 34.69 (75.30 kg, 147.32 cm) iw MDM: 11:15 Medical Screening Exam initiated sb4 11:52 Differential diagnosis: hypertensive crisis. sb4 14:54 Data interpreted: Pulse oximetry: on room air is 100 %. Interpretation: normal. Plan: sb4 O2 by NC applied. Data reviewed: vital signs, nurses notes, lab test result(s), EKG, radiologic studies, and as a result, I will discharge patient. Consideration of Admission/Observation Escalation of care including admission/observation considered. Historians other than the Patient: Parent: MOM AND DAD. Counseling: I had a detailed discussion with the patient and/or guardian regarding the historical points, exam findings, and any diagnostic results supporting the discharge/admit diagnosis, the presence of at least one elevated blood pressure reading (>120/80) during this emergency department visit, lab results, radiology results, the need for outpatient follow up, for definitive care, to return to the emergency department if symptoms worsen or persist or if there are any questions or concerns that arise at home. 03/10 11:33 Order name: Basic Metabolic Panel; Complete Time: 12:27 sb4 03/10 11:33 Order name: CBC with Diff; Complete Time: 12:16 sb4 03/10 11:33 Order name: LFT's; Complete Time: 12:27 sb4 03/10 11:33 Order name: Magnesium; Complete Time: 12:27 sb4 03/10 11:33 Order name: NT PRO-BNP; Complete Time: 12:27 sb4 03/10 11:33 Order name: PT-INR; Complete Time: 12:08 sb4 03/10 11:33 Order name: Troponin HS; Complete Time: 12:27 sb4 03/10 11:33 Order name: Test, Serum; Complete Time: 12:20 sb4 03/10 11:34 Order name: TSH; Complete Time: 12:27 sb4 03/10 11:33 Order name: XRAY Chest (1 view); Complete Time: 12:16 sb4 03/10 11:33 Order name: Cardiac monitoring; Complete Time: 11:56 sb4 03/10 11:33 Order name: EKG - Nurse/Tech; Complete Time: 11:56 sb4 03/10 11:33 Order name: IV Saline Lock; Complete Time: 11:56 sb4 03/10 11:33 Order name: Labs collected and sent; Complete Time: 11:56 sb4 03/10 11:33 Order name: O2 Per Protocol; Complete Time: 11:56 sb4 03/10 11:33 Order name: O2 Sat Monitoring; Complete Time: 11:56 sb4 EC:53 Rate is 89 beats/min. Rhythm is regular, Normal Sinus Rhythm. [place] interval is normal at sb4 140 msec. QRS interval is normal at 60 msec. QT interval is normal at 342 msec. No Q waves. T waves are Normal. No ST changes noted. Clinical impression: No evidence of ischemia. Interpreted by me. Reviewed by me. Administered Medications: 12:39 Drug: cloNIDine PO 0.1 mg PO once Route: PO; cm10 13:28 Follow up: Response: No adverse reaction; Blood pressure is unchanged cm10 12:39 Drug: Ondansetron IVP 4 mg IVP once; over 2 minutes Route: IVP; Site: right antecubital;cm10 13:27 Follow up: Response: No adverse reaction cm10 13:27 Drug: hydrALAZINE IVP 10 mg IVP once Route: IVP; Site: right antecubital; cm10 14:20 Follow up: Response: No adverse reaction; Blood pressure is lowered cm10 14:06 Drug: diphenhydrAMINE IVP 25 mg IVP once Route: IVP; Site: right antecubital; nh2 15:05 Follow up: Response: No adverse reaction; Pain is decreased cm10 14:07 Drug: Ketorolac IVP 15 mg IVP once Route: IVP; Site: right antecubital; nh2 15:05 Follow up: Response: No adverse reaction; Pain is decreased cm10 14:07 Drug: metoCLOPramide IVP 10 mg IVP once; over 1 to 2 minutes Route: IVP; Site: right nh2 antecubital; 15:05 Follow up: Response: No adverse reaction; Pain is decreased cm10 Disposition Summary: 03/10/25 14:54 Discharge Ordered Notes: Location: Home sb4 Problem: an ongoing problem sb4 Symptoms: have improved sb4 Condition: Stable sb4 Diagnosis - Essential (primary) hypertension sb4 Followup: sb4 - With: Private Physician - When: 1 week - Reason: Recheck today's complaints, Re-evaluation by your physician Discharge Instructions: - Discharge Summary Sheet sb4 - Hypertension, Adult, [id number] sb4 - How to Take Your Blood Pressure, [id number] sb4 - Form - Blood Pressure Record Sheet sb4 Forms: - Patient Portal Instructions sb4 - Leadership Thank You Letter sb4 Prescriptions: - losartan 25 mg Oral tablet - take 1 tablet ORAL route daily; 20 tablet; Refills: 0, Product Selection sb4 Permitted Signatures: Dispatcher [employer] Sierra Rios RN RN iw Brown, Sophia PAKitty PAAmandaC sb4 Rachael Espinosa RN RN cm10 Primo Kebede Jr RN RN nh2 Corrections: (The following items were deleted from the chart) 11:33 11:33 BASIC METABOLIC PANEL+C.LAB.BRZ ordered. EDMS EDMS 11:33 11:33 CBC+H.LAB.BRZ ordered. EDMS EDMS 11:33 11:33 HEPATIC FUNCTION+C.LAB.BRZ ordered. EDMS EDMS 11:33 11:33 MAGNESIUM+C.LAB.BRZ ordered. EDMS EDMS 11:33 11:33 PROBNP+C.LAB.BRZ ordered. EDMS EDMS 11: 11:33 PROTIME (+INR)+COAG.LAB.BRZ ordered. EDMS EDMS : 11:33 Troponin High Sensitivity+C.LAB.BRZ ordered. EDMS EDMS : 11:33 TEST, SERUM+SC.LAB.BRZ ordered. EDMS EDMS 11:34 11:34 Chest Single View+RAD.RAD.BRZ ordered. EDMS EDMS 11: 11:34 THYROID STIMULAT HORMONE+C.LAB.BRZ ordered. EDMS EDMS
[2025-03-10 15:30] VITALS: TEMP 98.1
[2025-03-10 15:36] VITALS: BP 144/85; O2SAT 99
== END 2025-03-10 15:07 | disposition home or self-care (01) ==
LOC: ER 11:07
DX: I10 Essential (primary) hypertension (principal)
CPT/HCPCS: 36415; 71045; 80048; 80076; 83735; 83880; 84443; 84484; 84703; 85025; 85610; 93005; 96374; 96375; 99285; J0360; J1200; J1885; J2405; J2765